=== PATIENT | female | born 1950 | race African-American/Black ===

== ENCOUNTER 2020-06-29 11:28 | Inpatient (IN) | payer MEDICARE ==
[~2020-06-29] VITALS: Ht 167.6 cm; Wt 63.7 kg
[~2020-06-29 11:28] MED LIST: CARTIA XT300 MG PO; FOLIC ACID 11 MG/TA1 PO; LEXAPRO 10MG10 MG PO; MIRALAX PA17 GM/Dose PO; NEURONTIN300 MG/CAP PO; PROTONIX 40MG T40 MG PO; TYLENOL 325MG325 MG PO; ULTRAM 50MG TAB50 MG PO; VITAMIND3 5000 PO
[2020-06-29 16:10] VITALS: BP 154/92; PULSE 87; TEMP 97.9
--- NOTE | 2020-06-29 18:35 | NUR ---
PT TRANSFERRED VIA BED BY [facility] 9 12 TUTOR TO ROOM 338 AROUND 1220. PT ORIENTED TO THE UNIT AND BEGAN THERAPY WITH OT, PT, ST. PT RECIEVED ONE DOSE OF SCHEDULED TRAMADOL. MED REC, IPR CARE PLAN IN PLACE, ADMISSION INTAKE, AND PHYSICAL ASSESSMENT COMPLETED. PT NEEDED MODERATE AMOUNT OF ASSISTANCE WITH MEALS THIS EVENING. DID NOT HAVE UTENSIL TOOLS AT THAT TIME, WILL TRY AGAIN IN THE AM.
--- NOTE | 2020-06-29 19:10 | NUR ---
Received report from Orquidea. Seen patient in bed, asleep. Awaken patient as dietary wants to know her preferred meal for tomorrow. She in on room air. She has purewick with clear, yellow urine. Patient states she doesn't want to be awaken later for her Tramadol.
--- NOTE | 2020-06-29 21:05 | NUR ---
Repositioned patient in bed. Checked on purewick, still in place. Maintained pillow on the right side.
[2020-06-30 05:29] VITALS: BP 136/71; PULSE 72; TEMP 97.4
--- NOTE | 2020-06-30 05:39 | NUR ---
Changed patient's purewick and diaper. Repositioned patient in bed.
--- NOTE | 2020-06-30 06:53 | NUR ---
PT SLEEPING IN BED AT BEDSIDE SHIFT REPORT. AIR MATTRESS IN PLACE SOFT TOUCH CALL LIGHT WITHIN REACH, BED IN LOW.
[2020-06-30] MEDS ORDERED: LOVENOX 4040 MG/0.4 SQ (06:58)
--- NOTE | 2020-06-30 15:44 | NUR ---
PRN SUPPOSITORY GIVEN. PT UNABLE TO GIVE DATE OF LAST BM, OVER A WEEK AGO. PT TOLERATED WELL. WAS HELD IN FOR 30-40 MINUTES AND THEN PT PLACED ON BEDPAN. AWAITING RESULTS.
--- NOTE | 2020-06-30 16:44 | NUR ---
SMALL IMPACTION WAS DIGITALLY REMOVED BY THIS NURSE. PT THEN HAD MINIMAL OUTPUT OF BM THAT PRESENTED LIKE FAT. WHITE WITH MINIMAL FORM AND SOFT. PT ALSO VOIDED WHILE ON BEDPAN. PT WAS CLEANED UP, NEW PAD PLACED UNDERNEATH AND PERIWICK REPLACED.
[2020-06-30 17:07] VITALS: BP 107/43; PULSE 77; TEMP 97.5
--- NOTE | 2020-06-30 17:45 | NUR ---
DISCUSSED WITH PT AND WITH RURAL SOCIOLOGIST NEW IDEAS FOR FEEDING. PT VOMITTED TWICE TODAY AFTER EATING. PT IS TRYING TO CONSUME MORE THEN STOMACH IS USED TO BECAUSE OF OUR SCHEDULE FOR MEALS. PT NEEDS VERY SMALL MEALS SPACED OUT. AND NO DRINKS WITHIN 30 MINUTES AFTER EATING. PT NEEDS TO SIT UP FOR 45-HOUR AFTER EATING WELL.
--- NOTE | 2020-06-30 21:30 | NUR ---
PATIENT RESTING IN BED. STATES SHE STILL HAS THE "PINS AND NEEDLES" SENSATION IN HER HANDS AND FEET. NEONATAL PEDIATRIC NURSE ASSISTED HER WITH EATING HER PEARS AND ENSURE. PATIENT REPOSITIONED. SOFT TOUCH CALL LIGHT IN REACH.
--- NOTE | 2020-07-01 00:30 | NUR ---
PATIENT COMPLAINING OF HEART BURN. TUMS ADMINISTERED. PATIENT REPOSITIONED. PUREWICK STILL IN PLACE.
[2020-07-01 04:57] VITALS: BP 110/53; PULSE 78; TEMP 98.4
--- NOTE | 2020-07-01 05:48 | NUR ---
PATIENT SLEPT WELL THROUGHOUT THE NIGHT. REPOSITIONED PATIENT FREQUENTLY. PATIENT DENIES PAIN THIS MORNING. PATIENT IS CLEAN AND DRY WITH PUREWICK STILL IN PLACE. SOFT TOUCH CALL LIGHT IS IN PLACE.
[2020-07-01 09:00] VITALS: BP 114/64; BP 120/64; PULSE 100; PULSE 98
--- NOTE | 2020-07-01 15:37 | NUR ---
The patient is new to [facility]. Supervisor Liquefaction met with the patient complete intake. The patient lives in [place] with her son-in-law, and daughter, Cherelle. The patient has a wheelchair, walker, and bedside commode. The patient's PCP is Dr. Caraballo and patient receives medications from [facility] in . The patient has advanced directives in the EMR. SW presented the Team Conference Notes. The patient had no questions at this time.
[2020-07-01 16:10] VITALS: BP 117/59; PULSE 84; TEMP 97.5
--- NOTE | 2020-07-01 19:39 | NUR ---
RECEIVED CHANGE OF SHIFT REPORT FROM DAY SHIFT NURSE.
--- NOTE | 2020-07-01 19:54 | NUR ---
Patient attended all her therapies today. She was given a swallow study this morning, but patient and ST have decided to continue to keep her on pureed foods at this time. Patient is able to feed her self a little bit, but has much difficulty and with assistance is able to eat all her food and drink more. Patient was incontinent of urine this morning following her PT session. This nurse changed out her brief and the stage II ulcers to her bottom staff placed zinc. This nurse was not able to feed patient all her breakfast, but was able to get her to eat most of her lunch and supper this evening. She uses the purwick when in bed to prevent any worsening of her ulcer to her coccyx. This nurse reported off to night nurse.
--- NOTE | 2020-07-01 20:00 | NUR ---
CONTINUES WITH GENERALIZED WEAKNESS, UNABLE TO AMBULATE AT THIS TIME DUE TO SEVERE GENERALIZED WEAKNESS, PATIENT ATTEMPTS TO DRINK PER SELF WHEN ABLE AND FEED SELF DURING MEAL TIMES IF ABLE BUT MOSTLY REQUIRES ASSIST WITH DRINKING AND BEING FED AT MEAL TIMES. HAND BRAZE OPERATOR ARE VERY WEAK BUT EQUAL. PURE WICK IN PLACE. PICC LINE IN PLACE AND FLUSHES WELL.
[2020-07-02 05:07] VITALS: BP 95/47; PULSE 85; TEMP 97.8
--- NOTE | 2020-07-02 09:38 | NUR ---
Follow-up visit; Mervat always thanks Lockstitch Pocket Setter for visiting and offering prayer and asks Lockstitch Pocket Setter to come back tomorrow. Patient seems to be doing well and does love prayer.
--- NOTE | 2020-07-02 14:07 | NUR ---
Admission QIM scores were reviewed by the team. Code of 1 chosen for toilet hygiene was determined by team discussion to be the most usual performance for this patient during the assessment period. Code of 2 chosen for rolling left to right was determined by team discussion to be the most usual performance for this patient during the assessment period. Code of 1 chosen for sit to lying was determined by team discussion to be the most usual performance for this patient during the assessment period. Code of 1 chosen for lying to sitting on side of bed was determined by team discussion to be the most usual performance for this patient during the assessment period.--Leila Fernandez,
[2020-07-02 16:18] VITALS: BP 99/32; PULSE 90; TEMP 98.7
--- NOTE | 2020-07-02 19:49 | NUR ---
RECEIVED CHANGE OF SHIFT REPORT FROM DAY SHIFT NURSE.
--- NOTE | 2020-07-02 21:24 | NUR ---
Patient attended all her therapies today. She was able to feed herself when staff placed her drinks in a coffee paper cup with lid and straw. This made it easier for her to be able to hold the drink without spilling it. Patient continues to use the purwick to help with ulcer healing on her bottom. Patient was placed on a mechanical soft diet instead of the pureed diet per suggestion of Elise. Patient has a lactose intolerance and this was causing her to not be able to eat vegetables due to the pureed foods have a lactose ingredient. Elise stated that the kitchen staff could still help with getting patient pureed foods with this type of diet. They could blend the foods themselves. Patient had passed the swallow study, but still is needing to have the pureed type foods to be able to swallow easier and feed herself easier. Patient had tilt table blood pressures completed at different degrees. See EMR for results of this today. Patient seems to tolerate the crushed pills easier then the whole pills and likes to take them with chocolate pudding. Patient currently resting in bed, call light in reach and alarm set. She was repositioned Q 2 Hours this shift. Reported off to night nurse.
--- NOTE | 2020-07-02 21:37 | NUR ---
Orthostatic Blood Pressures using tilt table today: Zero degrees: BP 83/62; P 110 20 degrees: BP 98/33; P 105 40 degrees: BP 109/51 P 117 60 degrees: BP 49/20 P 118 0 degrees: BP 97/51 P 101 5 min later BP 123/63 P 96
[2020-07-03 05:22] VITALS: BP 94/43; PULSE 82; TEMP 97.3
--- NOTE | 2020-07-03 07:37 | NUR ---
CHANGE OF SHIFT REPORT GIVEN TO DAY SHIFT NURSESRIRAM.
--- NOTE | 2020-07-03 10:08 | NUR ---
PT RESTING IN BED AT BEDSIDE SHIFT REPORT. PT REPORTS 4/10 PAIN WHICH IS BASELINE FOR HER THIS AM. SCHEDULED TRAMADOL GIVEN.
[2020-07-03 18:00] VITALS: BP 88/46; PULSE 99; TEMP 97.9
--- NOTE | 2020-07-03 19:25 | NUR ---
PT VOMITTED AFTER EATING SUPPER. PROTONIX WAS UNABLE TO BE GIVEN PRIOR TO EATING AND PT REFUSED IT AFTER EATING. HYPOTENSIVE, OUTPUT IS MINIMAL SO INPUT IS LIKELY NOT ENOUGH.
[2020-07-03 19:39] VITALS: BP 114/95
[2020-07-04 05:02] VITALS: BP 96/48; PULSE 53; TEMP 98
--- NOTE | 2020-07-04 06:30 | NUR ---
Patient slept well throughout the night with no complaints of pain. States she has the "usual pins and needles in her hands and feet". Repositioned patient frequently throughout the night. Will report off to day shift.
[2020-07-04 10:15] VITALS: BP 106/55; PULSE 96
[2020-07-04 17:39] VITALS: BP 133/74; PULSE 88; TEMP 98.5
--- NOTE | 2020-07-04 18:23 | NUR ---
PATIENT HAD AN UNEVENTFUL SHIFT. PATIENT REPOSITIONED THROUGHOUT THE DAY. MEDICATIONS ADMINISTERED DIRECTED. PATIENT CHECKED AND CHANGED. PURWICK IN PLACE AT THIS TIME. PATIENT SITTING UP IN BED WATCHING TV AT THIS TIME. WILL REPORT OFF TO ONCOMING NURSE.
--- NOTE | 2020-07-04 20:00 | NUR ---
PT RESTING IN BED WITH HOB ELEVATED. WATCHING TV. PLEASANT AND COOPERATIVE. PT C/O CONSTIPATION. PLACED SUPPOSITORY. GAVE SENOKOT AT HS. HAD A XL HARS/SOFT BROWN BM. PLACE NEW PERIWICK- URINE WAS LEAKING ON DIAPER. K[place]LESH AREA CLEANED. ENC PT TO DRINK MORE- URINE HAZY YELLOW WITH SOME SEDIMENT IN CANNISTER. CLEANED COCCYX WOUND AND PLACED NEW SACRAL DRSG. SEE ASSESSMENT. ENC TO REPOSITION FREQ IN BED. DIFFERENTIAL TESTER WILL ASSIST.
[2020-07-05 03:37] VITALS: BP 125/59; PULSE 93; TEMP 98.3
--- NOTE | 2020-07-05 07:48 | NUR ---
Patient was a two person assist to scoot up in bed. Patient was a set up for eating and required some assistance with cutting up eggs in smaller bites so she is able to feed herself. Patient uses an attached device to handle of spoon to help her hold onto spoon better. Patient watching TV at this time. VSS. Denies any questions.
--- NOTE | 2020-07-05 11:01 | NUR ---
Worked with patient on range of motion of hands/arms/legs. Patient did her ST therapies this morning as per her paper instructions with this nurse observing. Patient also was able to do morning stretches and is using her squeeze device to strengthen her hands. Patient currently watching TV, call light in reach and bed alarm set. Will continue to monitor.
--- NOTE | 2020-07-05 14:52 | NUR ---
Patient incontinent of urine, was a one assist to change brief. Has periwick in place at this time. Urine is light js and hazy. Will continue to monitor.
[2020-07-05 16:22] VITALS: BP 116/52; PULSE 100; TEMP 97.7
[2020-07-05 17:52] LABS: COLLECTION METHOD CATHETER
[2020-07-05 17:59] LABS: MUCOUS Present /lpf; PH 8 (5-8); SQUAMOUS EPITHELIAL 0-2 /hpf; URINE APPEARANCE Clear; URINE BACTERIA None Seen /hpf; URINE BILIRUBIN Negative (NEGATIVE); URINE BLOOD Negative (NEGATIVE); URINE COLOR Yellow; URINE GLUCOSE Negative (NEGATIVE); URINE KETONE Negative (NEGATIVE); URINE LEUKOCYTE ESTERASE Negative (NEGATIVE); URINE NITRATE Negative (NEGATIVE); URINE PROTEIN(semi-quant) 1+ (NEGATIVE); URINE RBC 0-2 /hpf; URINE UROBILINOGEN >=4.0 mg/dL (NEGATIVE)
--- NOTE | 2020-07-05 19:29 | NUR ---
Patient was straight cathed to get a clean catch urine for a UA/UC. Using 16 Frendch Catheter.Patient toleratedwell.
--- NOTE | 2020-07-05 20:30 | NUR ---
PT RESTING IN BED. TURNED FREQUENT TO OFF SET WEIGHT ON COCYCCX WOUND. PT HAD LOOSE BM- APPLIED CLEAN SACRAL DRSG. HANGED LINENS. APPLIED NEW PERIWICK IN PLACE. PT VERY WEAK FRESH FOOD MANAGER ESPECIALLY RT HAND- RT KNEE SWOLLEN WITH ARTHRITIS. LT ALITTLE LESS SWOLLEN. TAKE HS MEDICATIONS CRUSHED IN PUDDING. NO NEEDS AT THIS TIME.
--- NOTE | 2020-07-06 04:00 | NUR ---
POOR UO PER PERIWICK. NO LEAKAGE NOTED. BLADDER SOFT. ENC PT TO DRINK. ASSISTED WITH HOLDING HER CUP. PT DRANK LG AMT. WILL CONTINUE TO MONITOR.
[2020-07-06 04:03] VITALS: BP 113/59; PULSE 90; TEMP 98.2
--- NOTE | 2020-07-06 09:48 | NUR ---
PT SLEEPING IN BED AT BEDSIDE SHIFT REPORT, BED ALARM ON, CALL LIGHT WITHIN REACH. PT REPORTS BASELINE PAIN THIS AM. AND RECEIEVED SCHEDULED TRAMADOL. PT REPORTS NOT BEING HUNGRY AND HAVING AN UPSET STOMACH.
--- NOTE | 2020-07-06 15:01 | NUR ---
Follow-up visit; Mervat and had a nice visit and prayer. Executive Compensation Analyst also offered encouragement and blessings.
[2020-07-06 16:28] VITALS: BP 115/51; PULSE 90; TEMP 98.3
--- NOTE | 2020-07-06 19:57 | NUR ---
RECEIVED CHANGE OF SHIFT REPORT FROM DAY SHIFT NURSE. PATIENT C/O HEART BURN AFTER EATING MOST OF SUPPER, SEE eMAR FOR TUMS GIVEN. PURE WICK IN PLACE AND SUCTION ON.
--- NOTE | 2020-07-06 20:20 | NUR ---
PT REPORTED BASELINE PAIN TODAY OF 4/10, RECEIEVED SCHEDULED TRAMADOL. PT UTILIZING PUREWICK AND Q2 TURNS TO PREVENT MORE BREAKDOWN TO SACRAL PRESSURE INJURY. DRSG CHANGED TO S2 INJURIES TO SACRUM, SILVER AG AND NEW ALLEVYN DRSG PLACED. PT SAT ON BEDPAN AND WAS UNABLE TO HAVE BM ON HER OWN. THIS NURSE DIGITALLY REMOVED A MEDIUM AMOUNT OF PUTTY/HARD STOOL. PT HAS VERY LITTLE TON AND UNABLE TO PUSH BOWEL OUT ON HER OWN. PT CLEANSED AND PUREWICK REPLACED AND PT REPOSITIONED.
[2020-07-07 05:11] VITALS: BP 77/36; PULSE 97; TEMP 97.8
[2020-07-07 07:32] VITALS: BP 112/58
--- NOTE | 2020-07-07 07:37 | NUR ---
CHANGE OF SHIFT REPORT GIVEN TO DAY SHIFT NURSEKEVIN.
--- NOTE | 2020-07-07 10:49 | NUR ---
Community Service Manager met with the patient to follow up. The patient does not have any questions or concerns at this time.
--- NOTE | 2020-07-07 12:46 | NUR ---
Follow-up visit; Patient states she is doing better every day and thanked Fashion Editor for thinking of her.
--- NOTE | 2020-07-07 15:36 | NUR ---
The patient's daughter visited this day.
--- NOTE | 2020-07-07 16:31 | NUR ---
Patient resting in bed, call light in reach, bed alarm set. Patient was repositioned and has this done Q 2 Hours due to stage II ulcer to her coccyx area. Patient has a mepilex in place at this time. Patient has a periwick in place to help with prevention of moisture. Patient's daughter stopped by to visit patient this afternoon following therapies. Patient attended all therapies today. She refused her breakfast due to being tired, but she did drink all her ensure drink for both following breakfast and lunch. Patient denies pain at this time. Will continue to monitor.
[2020-07-07 17:26] VITALS: BP 111/59; PULSE 106; TEMP 98.9
--- NOTE | 2020-07-07 19:30 | NUR ---
RECEIVED CHANGE OF SHIFT REPORT FROM DAY SHIFT NURSE.
--- NOTE | 2020-07-07 20:00 | NUR ---
CONTINUES WITH GENERALIZED WEAKNESS WITH EQUAL KEIRY COATER HAND. PURE WICK IN PLACE. BED ALARM ON. DENIES CHEST PAIN/SHORTNESS OF BREATH. CONTINUES WITH NUMBNESS/TINGLING TO EXTREMITIES " ALWAYS FROM BEFORE" PER PATIENT STATEMENT.
--- NOTE | 2020-07-07 20:12 | NUR ---
Patient resting in bed, call light in reach and bed alarm set. Reported off to night nurse.
[2020-07-08 05:06] VITALS: BP 116/55; PULSE 97; TEMP 97.9
--- NOTE | 2020-07-08 14:50 | NUR ---
Patient resting in bed at this time. This nurse assisted patient with digital anal stimulation due to a hard BM this morning. Patient is not able to sit up to have a BM and does not have enough strength to push. Will work with patient this afternoon again. Patient wanted to wait until after the rest of her therapies to continue to work on completing her BM.
--- NOTE | 2020-07-08 15:52 | NUR ---
Outreach Analyst met with the patient to review the Team Conference Note. The team is recommending a tentative discharge on 07/17 to SNF. The patient was agreeable to sending referrals to [facility], and [facility]. Referrals to be sent. The patient had no questions at this time.
--- NOTE | 2020-07-08 16:30 | NUR ---
Ornamental Brick Installer contacted the patient's daughter, Cherelle to set up family meeting for Monday, 07/13 at 1300. She was in agreeable to the meeting time. SW collaborted the above information with BHANU Dee Director.
[2020-07-08 17:00] VITALS: BP 124/58; PULSE 101; TEMP 98
--- NOTE | 2020-07-08 21:00 | NUR ---
PT RESTIN IN BED. POOR MUSCLE TONE AND STRENGTH. VERY POOR BUYER INTERNSHIP. REPOSTIONED OFF COCCYX - SACRAL DRSG IN PLACE. TAKE ULTRAM SCHEDULED FOR PAIN. WEARS DIAPERS AND PURIWICK FOR INCONTINENCE- LEAKS FREQUENTLY. CALL LIGHT PAD IN REACH. BED ALARM SET.
--- NOTE | 2020-07-08 21:30 | NUR ---
PT C/O CONSTIPATED. HAD HARD STOOL EARLIER TODAY BUT STILL FEEL UNABLE TO EMPTY BOWELS. GAVE DULCOLAX SUPPOSITORY. CHANGED COCCYX MEPILEX WET- URINE. REPLACED PURIWICK.
--- NOTE | 2020-07-08 23:15 | NUR ---
ABLE TO EXPELLED SOME HARD STOOL. REQUIRED DIGITALLY REMOVE LG AMT HAARD BROWN STOOL. PT RELIEVED.
--- NOTE | 2020-07-09 02:28 | NUR ---
PT WATCHING TV WHILE RESTING IN BED. PURWICK IN PLACE, DRAINING CLEAR, YELLOW URINE. PICC WITH DUAL LUMENS TO UPPER RIGHT ARM. SITE WITHOUT S/S INFECTION. DENIES ANY NEEDS AT PRESENT.
[2020-07-09 05:20] VITALS: BP 114/61; PULSE 94; TEMP 98.4
--- NOTE | 2020-07-09 09:44 | NUR ---
Follow-up visit; Patient thanked Abrasive Grinder for thinking of her and praying with her this morning.
--- NOTE | 2020-07-09 09:56 | NUR ---
PT SLEEPING IN BED AT BEDSIDE SHIFT REPORT. PT WAS INCONTINENT, PUREWICK IN PLACE BUT NOT SUCTIONING. PT HAD BLISTER ON RT INNER THIGH WHICH HAS OPENED AND NOW APPEARS A SKIN TEAR.
--- NOTE | 2020-07-09 12:54 | NUR ---
Experimental Welder faxed SN[facility] ref[facility], and [facility].
[2020-07-09 13:10] LABS: BASO % 0.2 % (0.0-2.0); EOS # 0.1 (0.0-0.7); GRAN # 2.8 (1.4-6.5); GRAN % 48.5 % (42.2-75.2); HEMOGLOBIN 11.2 g/dl (12.5-16.0); LYMPH # 1.9 (1.2-3.4); LYMPH % 32.6 % (20.0-51.0); MEAN CELL VOLUME 85 fl (80.0-100.0); MEAN CORPUSCULAR HEMOGLOBIN 28 pg (27.0-31.0); MEAN CORPUSCULAR HGB CONC 32 g/dl (33.0-37.0); MEAN PLATELET VOLUME 12.1 fl (7.4-10.4); MONO % 17.5 % (1.7-9.3); PLATELET COUNT 169 K/mm3 (130-400); RED BLOOD COUNT 4.06 M/mm3 (4.10-5.30); REDCELL DISTRIBUTION WIDTH-CV 21.3 % (11.5-14.5)
[2020-07-09 13:11] LABS: HEMATOCRIT 34.6 % (37.0-47.0)
[2020-07-09 13:20] LABS: CREATININE, serum 0.43 (0.52-1.25); MAGNESIUM 1.8 mg/dL (1.6-2.3); POTASSIUM 3.5 mmol/L (3.4-5.0)
[2020-07-09 16:25] VITALS: BP 118/38; PULSE 101; TEMP 98.1
--- NOTE | 2020-07-09 19:49 | NUR ---
SILVER AG AND MEPILEX APPLIED TO INNER THIGH S2 AND SILVER AG AND ALLEVYN TO S2'S TO COCCYX. PT UTILIZING PUREWICK, HAD TROUBLE MAKING SURE IT IS WORKING PROPERLY TODAY, WAS INC SEVERAL TIMES BUT CAUGHT SOON DUE TO TURNING SCHEDULE. REPORTED TO NIGHT NURSE NOT TO PULL BRIEF UP B/C THIS IS CAUSING BLISTERS IN HER GROIN/THIGH. PT REQUESTS TRAMADOL BE CHANGED TO ONCE A DAY HS B/C CAUSING CONSTIPATION AND SHE STATES SHE DOES NOT HAVE MUCH PAIN, THIS WAS COMMUNICATED TO NIGHT NURSE.
--- NOTE | 2020-07-09 21:07 | NUR ---
PT RESTING IN BED. PURWICK IN PLACE WITH APPROX 150ML URINE IN SUCTION CANISTER. BLUE PAD ON PT DRY. REPOSITIONED TO RIGHT SIDE. CALL LIGHT IN REACH.
[2020-07-10 05:04] VITALS: BP 112/61; PULSE 90; TEMP 98
--- NOTE | 2020-07-10 05:21 | NUR ---
PT HAS HAD A GOOD NIGHT. STAYED DRY WITH THE PURWICK IN PLACE. A&O X4. DENIES PAIN, SOA. TAKES PROTONIX. VS MONITORED. REPOSITIONED TO LEFT SIDE. BED ALARM ON. CALL LIGHT WITHIN REACH.
--- NOTE | 2020-07-10 09:23 | NUR ---
Patient working with therapy. They are assisting with shower. Patient tried to use bedpan this am without success. She was provided with pressure ulcer cares. Patient skin very fragile. skin tears noted on inner thighs, patient reports it was from sasha zamudio loosly fastened. Patient has been using purwick, new one applied. Patient tolerated breakfast without nausea. Patient reports pain, but refused ultram scheduled, reporting she only needs it HS. Will monitor.
--- NOTE | 2020-07-10 10:14 | NUR ---
Patient positioned in bed to her left side after shower. Heel protectors placed. We discussed her poor skin integrity. Another new allyven foam placed to her coocyx post shower & to her inner thighs. Patietn wanting to rest until her next round of therapy.
--- NOTE | 2020-07-10 10:32 | NUR ---
Follow-up with Prayer card of 'Hope'. Patient doing PT.
--- NOTE | 2020-07-10 13:51 | NUR ---
Patient has been sleeping soundly. Speech went in to start her therapy session & patient was awoken from a deep sleepy slightly disoriented. Vitals stable on room air. Once I talked to patient she was oriented & felt fine. Just needed a minute to wake up
--- NOTE | 2020-07-10 14:32 | NUR ---
[facility] staff and [facility] staff inquired about the patient's IVIG treatment and the details. The patient may be needing the treatment for approximatley a year every three weeks. ELISA contacted Dr. Bradley's office to inquire about delaying the tx until after post acute rehab in order to find appropriate placement post IPR. Then continue the IVIG treatment after post acute rehab. Dr. Bradley reports it is medically unethical to stop tx at this time. ELISA collaborated the above information with [facility] Director.
[2020-07-10 16:00] VITALS: BP 123/65; PULSE 78; TEMP 98.5
--- NOTE | 2020-07-10 16:20 | NUR ---
Patient remains sleepy. Vss. She answers questions questions correctly. She knows month, year, where she is, who she is. She is repostioned in bed. Purewick in place.
--- NOTE | 2020-07-10 17:48 | NUR ---
Patient repostioned in bed for dinner, sat up for dinner. Patient assisted with dinner & we discussed importance of nutrition. She ate a few bites. She had a few sips of water. Continues to be oriented. Resting frequently.
--- NOTE | 2020-07-10 19:04 | NUR ---
Patient repositioned to left side. Pillows used. Bedside report to Mervat
--- NOTE | 2020-07-10 20:54 | NUR ---
PT RESTING IN BED WITH HOB ELEVATED TO 15 DEGREE ANGLE, DENIES PAIN OR DISCOMFORT. NO NEEDS AT THIS TIME, CALL LIGHT WITHIN REACH.
--- NOTE | 2020-07-11 00:42 | NUR ---
WHILE CHANGING AN INCONTINENT EPISODE OF BM. THIS NURSE NOTICED THAT THE PT HAD AN OPEN AREA ON HER RIGHT GUTEAL FOLD NEAR HER THIGH. PLACED A DRSG OVER THE AREA.
[2020-07-11 05:59] VITALS: BP 126/55; PULSE 106; TEMP 97.4
--- NOTE | 2020-07-11 06:34 | NUR ---
PT HAD NOT HAD ANY URINE OUTPUT ALL SHIFT. BLADDER SCANNED PT AND PT ONLY HAD 78ML OF URINE SHOWING IN HER BLADDER. DID ASSIST PT WITH DRINKING WATER. PT HAD A NEW ULCER ON HER GLUTEAL FOLD ON RIGHT SIDE NEAR TIGHT. NO OTHER CONCERNS NOTED. CALL LIGHT WITHIN REACH AND BED ALARM ON.
--- NOTE | 2020-07-11 07:15 | NUR ---
PT SLEEPING IN BED AT BEDSIDE SHIFT REPORT. BED IN LOW, CALL LIGHT WITHIN REACH, PUREWICK IN PLACE.
[2020-07-11 16:23] VITALS: BP 123/61; PULSE 102; TEMP 99
--- NOTE | 2020-07-11 18:14 | NUR ---
PT REPORTED BASELINE PAIN TODAY OF 4/10 MANAGED WELL WITH BID TRAMADOL. PT ON Q2 TURNING SCHEDULED MAINTAINED STRICTLY TODAY WELL CHECKS THAT PUREWICK IS IN PLACE AND PT IS DRY. FLUIDS PUSHED TODAY, PT HAD LITTLE TO NO OUTPUT LAST SHIFT AND HAS 700 OUTPUT AT SHIFT REPORT TODAY.
--- NOTE | 2020-07-11 19:31 | NUR ---
PT RESTING IN BED. DAY SHIFT NURSE GIVE REPORT. CHANGED IV ANTIBIOTIC BAG. DENIES ANY NEEDS AT PRESENT. CALL LIGHT IN REACH.
--- NOTE | 2020-07-11 20:38 | NUR ---
SHIFT ASSESSMENT COMPLETE. TAKES EVENING MEDS BUT WOULD LIKE TYLENOL AND HER MELATONIN AROUND 9:30PM. PERWICK IN PLACE AND DRAINING PALE YELLOW URINE. BED ALARM ON. WATCHING TV. PICC IN UPPER R ARM WRAPPED WITH CHAUNCEY. CALL LIGHT IN REACH. DENIES ANY NEEDS AT PRESENT.
[2020-07-12 05:59] VITALS: BP 112/53; PULSE 92; TEMP 98.1
--- NOTE | 2020-07-12 07:08 | NUR ---
PT REPOSITIONED EVERY [address] TRAY PLACED ACROSS BED FOR PT TO BE ABLE TO REACH CUP OF WATER. TYLENOL 650MG GIVEN AT HS. REPORT GIVEN TO DAY SHIFT NURSE.
--- NOTE | 2020-07-12 09:27 | NUR ---
0900- Pt. awake in bed and adrienne-wick changed with min dark orange fluid;adrienne cares given and coccyx dressing CDI and dressing posterior lower buttuck/thigh dressing CDI; max x1 to reposition and pull up in bed.
[2020-07-12 16:16] VITALS: BP 112/45; PULSE 103; TEMP 97.4
--- NOTE | 2020-07-12 18:55 | NUR ---
RECEIVED CHANGE OF SHIFT REPORT FROM DAY SHIFT NURSE. BED ALARM ON.
--- NOTE | 2020-07-12 20:00 | NUR ---
GENERALIZED WEAKNESS CONTINUES WITH SOME IMPROVEMENT, OBSERVED MOVEMENT OF BLE AT TIMES THAT PATIENT IS UNABLE TO CONTROL MOVEMENT AT THIS TIME. REPORTS STILL HAS NUMBNESS/TINGLING TO EXTREMITIES. DENIES CHEST PAIN/SHORTNESS OF BREATHE AT THIS TIME. PURE WICK IN PLACE/DRAINING WITH NO PROBLEMS. BED ALARM ON. PATIENT DENIES DISCOMFORT AT THIS TIME.
[2020-07-13 05:55] VITALS: BP 118/56; PULSE 97; TEMP 98.1
--- NOTE | 2020-07-13 07:14 | NUR ---
CHANGE OF SHIFT REPORT GIVEN TO DAY SHIFT NURSECARLY. BED ALARM ON.
--- NOTE | 2020-07-13 09:26 | NUR ---
Follow-up visit; Mervat seems to be doing about the same. Her spirits seem to be hopeful and she requested prayer as always. District Manager Major Accounts Sales prayed with her and offered God's blessings and a good day.
--- NOTE | 2020-07-13 13:42 | NUR ---
SW attended the patient/family conference. The patient's daughter, Cherelle, was present. Also present was IPR Director, PT, OT, and ST. IPR Director started by explaining the purpose of the meeting. PT/OT/ST then discussed the patient's progress so far. IPR Director then discussed how plan is for tentative d/c on Monday, 07/17, to a SNF, once placement is found. IPR Director informed them of the issue of the IVIG. IPR Director is collaborating with the hospitalist and neurologist on plans for the IVIG. The team answered all questions.
[2020-07-13 17:14] VITALS: BP 101/50; PULSE 108; TEMP 97.4
--- NOTE | 2020-07-13 18:30 | NUR ---
Patient has been doing well today. She ate most her meals on her own. She just needed help with setup. She ate slowly but did it mostly on her own. She sat up in the chair for a little while today. She was alert most the day, napped for about an hour after lunch. No other changes at this time. Call light within reach.
--- NOTE | 2020-07-13 19:00 | NUR ---
RECEIVED CHANGE OF SHIFT REPORT FROM DAY SHIFT NURSE. BED ALARM ON. PICC LINE INTACT. DENIES ANY NEEDS AT THIS TIME.
--- NOTE | 2020-07-13 20:00 | NUR ---
CONTINUES GENERALIZED WEAKNESS, RIGHT HAND BAGGAGE PORTER SLIGHTLY WEAKER THAN LEFT, OBSERVED AT TIMES SPASTIC MOVEMENT OF BLE WITH MOVE OF BLE BY STAFF. PURE WICK IN PLACE, DRAINING WITH NO PROBLEMS. PATIENT DENIES PAIN AT THIS TIME.
[2020-07-14 04:20] VITALS: BP 109/53; PULSE 71; TEMP 97
--- NOTE | 2020-07-14 07:41 | NUR ---
CHANGE OF SHIFT REPORT GIVEN TO DAY SHIFT NURSE, SRIRAM HAMMONDS.
--- NOTE | 2020-07-14 09:49 | NUR ---
PT SLEEPING IN BED AT BEDSIDE SHIFT REPORT. CHECKED THAT PUREWICK WAS IN PLACE AND WORKING, PT DRY AND WAS TURNED AT SHIFT CHANGE.
--- NOTE | 2020-07-14 10:38 | NUR ---
Follow-up visit; Patient thanked Rn Hedis for praying that she continue to give God her concerns about going to the right nursing facility that will be able to pay for and provide the medication that she needs. Patient continues to have marycruz and courage. Rn Hedis will keep her in Rn Hedis's prayers.
--- NOTE | 2020-07-14 14:01 | NUR ---
ELISA faxed updates to [facility], [facility], and [facility]. ELISA notified them of Dr. Bradley's plan to continue the IVIG every three weeks for a year.
--- NOTE | 2020-07-14 14:48 | NUR ---
Rox, at [facility], requests the J-Code and the cost of the IVIG. SW collaborated with pharmacy to obtain this information. The J-code is J1569. The estimated cost for the med would be $3,500 every three weeks. ELISA updated Rox on this information. Ceferino, at [facility], also requested the J-Code. SW provided Ceferino with the code.
[2020-07-14 16:52] VITALS: BP 114/62; PULSE 84; TEMP 98.4
--- NOTE | 2020-07-14 19:05 | NUR ---
RECEIVED CHANGE OF SHIFT REPORT FROM DAY SHIFT NURSE.
--- NOTE | 2020-07-14 20:00 | NUR ---
CONTINUES WITH GENERALIZED WEAKNESS AND RIGHT HAND LICENSING AND REGISTRATION DIRECTOR SLIGHTLY WEAKER THAN LEFT. SPEECH WITH NO SLURRING, ABLE TO DRINK THIN LIQUIDS WITH NO PROBLEMS. STILL REQUIRES TO HAVE PILLS CRUSHED&MIXED WITH PUDDING, WHEN APPROPRIATE. DENIES CHEST PAIN/SHORTNESS OF BREATH. REPORTS STILL HAS TINGLING TO EXTREMITIES SINCE ADMIT TO HOSPITAL. DENIES CHEST PAIN OR SHORTNESS OF BREATH. BED ALARM ON WHEN IN BED.
[2020-07-15 05:42] VITALS: BP 115/50; PULSE 89; TEMP 98.2
--- NOTE | 2020-07-15 07:35 | NUR ---
CHANGE OF SHIFT REPORT GIVEN TO DAY SHIFT NURSE, KEVIN HAMMONDS.
--- NOTE | 2020-07-15 10:13 | NUR ---
Patient working with PT at this time. Patient dry and has periwick in place to control moisture. Patient denies questions at this time.
--- NOTE | 2020-07-15 10:28 | NUR ---
Follow-up visit; Patient thanked Customer Success Manager for offering prayer and encouragement again this morning and is looking forward to being transferred to an Assisted Care Facility.
--- NOTE | 2020-07-15 15:24 | NUR ---
ELISA met with the patient to present and review the IPR Team Conference Note. SW informed the patient how plan is still for SNF with a tentative d/c on Monday, 07/17, and to receive her next dose of IVIG tomorrow or Monday. The patient verbalized understanding and was agreeable to this. ELISA notified [facility], and Bree of the above plan. Awaiting acceptance and denials from facilities.
[2020-07-15 16:50] VITALS: BP 116/60; PULSE 100; TEMP 98.3
--- NOTE | 2020-07-15 19:45 | NUR ---
RECEIVED CHANGE OF SHIFT REPORT FROM DAY SHIFT NURSE. BED ALARM ON.
--- NOTE | 2020-07-15 19:51 | NUR ---
Patient currently resting in bed, call light in reach and bed alarm set. Patient denied pain this afternoon. She attended all therapies today. She will be receiving her IVIG tomorrow per Dr. Quan's request. Patient in a pleasent mood this shift. Patient had a large soft formed BM that was continent via the bed fonseca. Will continue to monitor. Reported off to night nurse.
[2020-07-16] VITALS (9 sets, daily range): BP systolic 94–131; BP diastolic 47–65; PULSE 90–100; TEMP 97.6–98.3
--- NOTE | 2020-07-16 07:10 | NUR ---
CHANGE OF SHIFT REPORT GIVEN TO DAY SHIFT NURSE, KEVIN HAMMONDS.
--- NOTE | 2020-07-16 09:20 | NUR ---
Rox, at [facility], reports that they are able to accept the patient for a skilled stay. ELISA contacted and updated the patient's daughter, Cherelle. She is agreeable for the patient to go to [facility]. ELISA to inform the patient. ELISA asked the PA for a COVID test and the patient's RN was notified.
--- NOTE | 2020-07-16 10:17 | NUR ---
Patient working with therapy this morning. Tolerated diet well this morning. Denied pain. Patient did report that she started last night to have less strength in the right hand. Not only was it numb and tingling, but increased weakness compared to the left hand. This is different then it was. Will continue to monitor.
--- NOTE | 2020-07-16 14:29 | NUR ---
ELISA met with the patient to update about [facility] acceptance. The patient is agreeable to going to [facility] tomorrow. SW presented and read the IM form outloud to her. The patient verbalized understanding and gave ELISA approval to sign the form on her behalf. SW provided her with a copy.
--- NOTE | 2020-07-16 15:44 | NUR ---
Patient currently receiving her IVIG right now. Patient reports that she has had two other treatments of this sort prior to this hospitilization and has tolerated it well. Patient currently visiting with daughter at this time. Will continue to monitor.
--- NOTE | 2020-07-16 16:07 | NUR ---
The patient's RN notified ELISA that the patient's daughter is here and she is stating that they are going to [facility]. ELISA met with the patient and her daughter, Cherelle, to follow up. Cherelle reports that she received a phone call from Roverto at [facility] and Roverto informed her that the plan was for the patient to go to them tomorrow. ELISA informed Cherelle how [facility] has not even informed ELISA if they can accept the patient or not. ELISA reviewed how [facility] has accepted. The patient states that even if [facility] does accept, she would prefer [facility]. Cherelle was supportive of the patient's preference, but would like to know [facility]'s visiting hours. ELISA contacted Rox at [facility] and requested that she contact Cherelle.
--- NOTE | 2020-07-16 16:31 | NUR ---
Roverto, at [facility], reports that they are able to accept the patient. ELISA met with the patient and her daughter, Cherelle, to inform. The patient and Cherelle report that they would prefer to pursue SNF at [facility].
--- NOTE | 2020-07-16 16:50 | NUR ---
Patient tolerating the IVIG administration. Patient resting in bed, call light in reach and bed alarm set visiting with daughter at this time. Will continue to monitor. Patient will be discharging to a SNF and will follow up with her PCP upon discharge.
--- NOTE | 2020-07-16 20:29 | NUR ---
Patient attended all therapies today and was able to sit on the side of the bed without assistance for a short time this shift. Patient denies pain. Continues to be treated for a Stage II ulcer to her coccyx and is repositioned every 2 hours. Patient denies questions at this time. Will continue to monitor.
--- NOTE | 2020-07-16 20:30 | NUR ---
IVIG COMPLETED. VSS.
--- NOTE | 2020-07-16 20:40 | NUR ---
PT TOLERATED #2IVIG INFUSION WELL. NO REACTIONS, HPO/HYPERTENSION, TACHYCARDIA, N/V OR CHILLS.
--- NOTE | 2020-07-16 21:26 | NUR ---
CHANGED PURIWICK AT THIS TIME. MEPILEX COCCYX DRSG DRY AND IN PLACE. CALLIGHT IN REACH. BED ALARM SET.
--- NOTE | 2020-07-16 21:36 | NUR ---
PT RESSTING IN BED. PLEASANT AND COOPERATIVE. LIMITED ROM AND PHYSICAL STRENGTH. MAINTENANCE SUPERVISOR ELECTRICAL VERY WEAK. POOR DEXTERITY. PLANS FOR [facility] TOMORROW. NO NEEDS AT THIS TIEM. CALL LIGHT IN REACH. BED ALARM SET.
[2020-07-17 05:11] VITALS: BP 90/59; PULSE 90; TEMP 98
--- NOTE | 2020-07-17 09:03 | NUR ---
PT SLEEPING IN BED AT BEDSIDE SHIFT REPORT. PT ASSISTED TO REPOSITION AND CHECKED FOR INCONTINENCE PRIOR TO BREAKFAST. PT REPORTS BASELINE PAIN IN FINGERS AND TOES NOW INCLUDES HER HANDS. FEELS IT IS MORE DIFFICULT TO GRASP NOW. GIVEN SCHEDULED TRAMADOL AND WILL REASSESS.
[2020-07-17] MEDS ORDERED: CARTIA XT180 MG PO (10:12)
[2020-07-17] MEDS ORDERED: FLORINEF ACETA0.1 MG PO (10:13)
[2020-07-17] MEDS ORDERED: MELATIN 3 MG-11 TAB PO (10:14)
[2020-07-17] MEDS ORDERED: ULTRAM 50MG TAB50 MG PO (10:14)
[2020-07-17] MEDS ORDERED: ZINC OXIDE 28GM TOP (10:14)
--- NOTE | 2020-07-17 10:55 | NUR ---
The patient's COVID results came back negative. ELISA faxed the results to [facility]. The patient is to discharge today, 07/17, to [facility] for a skilled stay. Transportation was scheduled around 1300, via [facility]. ELISA informed the patient's RN and the patient's daughter, Cherelle, over the phone. They were all agreeable to the time. No additional needs at this time.
--- NOTE | 2020-07-17 13:46 | NUR ---
PT HEALTH SUMMARY, DISCHARGE SUMMARY, AND HOME MEDS PRINTED AND SENT WITH HER SNF [facility]. FOLLOW UP APPOINTMENTS WERE RELAYED TO SNF. PRINTED PRESCRIPTION FOR TRAMADOL SENT WITH PT. BELONGINGS GATHERED BY ANTIQUER INCLUDING ARTIFICIAL STONE SETTER. PT TRANSPORTED VIA WC BY NURSE AND REPAIR SERVICER AND SEATBELTED FOR RIDE TO SNF. REPORT CALLED AND GIVEN TO STANFORD AT [facility]. PHONE NUMBER PROVIDED IF ANY QUESTIONS ARISE.
--- NOTE | 2020-07-20 14:29 | NUR ---
Discharge QIM scores were reviewed by the team. Code of 3 chosen for toilet hygiene was determined by team discussion to be the most usual performance for this patient during the assessment period. Code of 1 chosen for toileting transfers was determined by team discussion to be the most usual performance for this patient during the assessment period. Code of 3 chosen for upper body dressing was determined by team discussion to be the most usual performance for this patient during the assessment period. Code of 2 chosen for putting on/taking off footwear was determined by team discussion to be the most usual performance for this patient during the assessment period. Code of 4 chosen for rolling left to right was determined by team discussion to be the most usual performance for this patient during the assessment period. Code of 4 chosen for sit to lying was determined by team discussion to be the most usual performance for this patient during the assessment period. Code of 4 chosen for lying to sitting on side of bed was determined by team discussion to be the most usual performance for this patient during the assessment period. Code of 1 for sit to stand was determined by team discussion to be the most usual performance for this patient during the assessment period.--Leila Fernandez, PD
== END 2020-07-17 13:49 | DRG 74 ==
PROVIDERS: Hospitalist; ADMIT Internal Medicine
DX: G61.81 Chronic inflammatory demyelinating polyneuritis (principal); E44.0 Moderate protein-calorie malnutrition; I10 Essential (primary) hypertension; F32.9 Major depressive disorder, single episode, unspecified; R13.10 Dysphagia, unspecified; M19.90 Unspecified osteoarthritis, unspecified site; I95.1 Orthostatic hypotension; M50.21 Other cervical disc displacement, high cervical region; Z20.822 Contact with and (suspected) exposure to COVID-19; R74.01 Elevation of levels of liver transaminase levels; R73.9 Hyperglycemia, unspecified; K59.00 Constipation, unspecified; E78.5 Hyperlipidemia, unspecified; Z79.891 Long term (current) use of opiate analgesic; Z91.81 History of falling; Z90.710 Acquired absence of both cervix and uterus
CPT/HCPCS: 99222-AI; 99231-AI; 99232-AI; 99233-AI; 99239; J1569; J1650

== ENCOUNTER 2020-08-06 10:04 | Outpatient (CLI) | payer OTHER, MEDICAID ==
[2020-08-06] VITALS (16 sets, daily range): BP systolic 106–136; BP diastolic 55–80; PULSE 83–102; TEMP 97.7–98.7
[~2020-08-06] VITALS: Ht 167.6 cm; Wt 61.3 kg
[~2020-08-06 10:04] MED LIST changes: +CARTIA XT180 MG PO; +FLORINEF ACETA0.1 MG PO; +LOVENOX 4040 MG/0.4 SQ; +MELATIN 3 MG-11 TAB PO; +ZINC OXIDE 28GM TOP
--- NOTE | 2020-08-06 11:26 | NUR ---
500ml bolus completed, rate decreased to 100ml/hr. Pt states she is no longer lightheaded. Pain to mid back improved but not resolved. Pt repositioned again in bed with additional relief in pain. Call light in reach.
[2020-08-06] MEDS ORDERED: JUVEN1 PDR PO (12:06)
[2020-08-06] MEDS ORDERED: TYLENOL SU650 MG/SUP RC (12:08)
[2020-08-06] MEDS ORDERED: GENTLE LAXATIVE10 MG RC (12:09)
[2020-08-06] MEDS ORDERED: CARTIA XT180 MG PO (12:10)
[2020-08-06] MEDS ORDERED: DEBROX OT (12:16)
[2020-08-06] MEDS ORDERED: COLACE 100100 MG/CAP PO (12:17)
[2020-08-06] MEDS ORDERED: IMODIUM 2MG CAPS2 MG PO (12:19)
[2020-08-06] MEDS ORDERED: MYLANTA 150 ML150 M1 PO (12:23)
[2020-08-06] MEDS ORDERED: MILK OF MA400 MG/52 PO (12:23)
[2020-08-06] MEDS ORDERED: NEURONTIN300 MG/CAP PO (12:24)
[2020-08-06] MEDS ORDERED: PROTONIX 40MG T40 MG PO (12:25)
[2020-08-06] MEDS ORDERED: ULTRAM 50MG TAB50 MG PO (12:26)
[2020-08-06] MEDS ORDERED: ZINC OXIDE56.7 GM TP (12:27)
--- NOTE | 2020-08-06 16:28 | NUR ---
PICC flushed and upper arm wrapped with jorge bandage. Pt assisted back to wheelchair after changing brief, and she was taken down to waiting room where [facility] transport staff was waiting.
== END 2020-08-06 16:39 | disposition home or self-care (01) ==
LOC: EUO 10:04
DX: G61.81 Chronic inflammatory demyelinating polyneuritis (principal)
CPT/HCPCS: J1569

== ENCOUNTER 2020-08-27 10:03 | Outpatient (CLI) | payer MEDICARE, MEDICAID ==
[~2020-08-27] VITALS: Ht 167.6 cm; Wt 138.0 kg
[2020-08-27] VITALS (14 sets, daily range): BP systolic 103–137; BP diastolic 55–94; PULSE 73–82; TEMP 97.6–98.5
[~2020-08-27 10:03] MED LIST changes: +COLACE 100100 MG/CAP PO; +DEBROX OT; +GENTLE LAXATIVE10 MG RC; +IMODIUM 2MG CAPS2 MG PO; +JUVEN1 PDR PO; +MILK OF MA400 MG/52 PO; +MYLANTA 150 ML150 M1 PO; +TYLENOL SU650 MG/SUP RC; +ZINC OXIDE56.7 GM TP
--- NOTE | 2020-08-27 10:40 | NUR ---
Here for an infusion. PICC intact right upper arm with dressing dated 08/26/20 with no chlorhexidine imprgnated disk applied. Sterile dressing change done with insertion site cleansed with chloraprep x 1, chlorhexidine impregnated disk applied, skin prep, stat lock, and tegaderm applied. no signs or symptoms of IV complications noted. no concerns voiced. re-wrapped with an jorge to protect catheter. to continue with cares at [facility].
--- NOTE | 2020-08-27 16:45 | NUR ---
Pt has tolerated IVIG infusion well. Mervat started her infusion in wheelchair, then moved to a bed in rm 12 at 1205. She ordered a small snack lunch, which she was able to eat with no problem. Pt's attends were changed during her stay, and pt had good mobility in bed and was able to roll back and forth with no problem. Pt did sleep on and off and was without complaint. after her infusion, PICC line was flushed with 20 cc ns and clamped. wrapped with jorge wrap. to exit via wheelchair where transportation was waiting. next appointment scheduled for 09/17 at 1000, appointment card was given. I called report to Earnest gallardo at [facility] and gave report to a nurse there.
== END 2020-08-27 16:45 | disposition home or self-care (01) ==
LOC: EUO 10:03
DX: G61.81 Chronic inflammatory demyelinating polyneuritis (principal); Z79.899 Other long term (current) drug therapy
CPT/HCPCS: J1569

== ENCOUNTER 2020-09-17 09:53 | Outpatient (CLI) | payer MEDICARE, MEDICAID ==
[~2020-09-17] VITALS: Ht 167.6 cm; Wt 64.0 kg
[2020-09-17] VITALS (13 sets, daily range): BP systolic 84–138; BP diastolic 52–84; PULSE 66–77; TEMP 98.3–98.4
[2020-09-17] MEDS ORDERED: MYLANTA 150 ML150 M1 PO (11:47)
[2020-09-17] MEDS ORDERED: NEURONTIN300 MG/CAP PO (11:47)
[2020-09-17] MEDS ORDERED: PROTONIX 40MG T40 MG PO (11:48)
[2020-09-17] MEDS ORDERED: ULTRAM 50MG TAB50 MG PO (11:48)
--- NOTE | 2020-09-17 16:00 | NUR ---
Brief changed, and adrienne cares completed. Pt has been able to adjust her positioning in bed during infusion. She tolerates infusion without issue. PICC dressing was changed by AMBER Amos, and new caps were placed. Pt assisted out to long term's transport van.
== END 2020-09-17 16:02 | disposition home or self-care (01) ==
LOC: EUO 09:53
DX: G61.81 Chronic inflammatory demyelinating polyneuritis (principal)
CPT/HCPCS: J1569

== ENCOUNTER 2020-10-08 09:59 | Outpatient (CLI) | payer OTHER, MEDICAID ==
[2020-10-08] VITALS (10 sets, daily range): BP systolic 90–133; BP diastolic 50–78; PULSE 69–88; TEMP 97–98
[~2020-10-08] VITALS: Ht 167.6 cm; Wt 57.6 kg
[2020-10-08] MEDS ORDERED: COPPER GLUCONATE PO (10:59)
[2020-10-08] MEDS ORDERED: VITAMIN B12 1541 TAB PO (10:59)
[2020-10-08] MEDS ORDERED: IRON TABLETS325 MG PO (11:00)
--- NOTE | 2020-10-08 16:45 | NUR ---
infusion completed at 1630, pt has no c/o, next appt set and written on form for nursing facility, report called to [facility] to [facility] and transportation lined up, no changes in earlier assessment, PICC flushed with saline and wrapped wit coban as when pt arrived
== END 2020-10-08 17:00 ==
LOC: EUO 09:59
DX: G61.81 Chronic inflammatory demyelinating polyneuritis (principal); Z79.899 Other long term (current) drug therapy
CPT/HCPCS: J1569

== ENCOUNTER 2020-10-29 09:52 | Outpatient (CLI) | payer OTHER, MEDICAID ==
[2020-10-29] VITALS (13 sets, daily range): BP systolic 114–135; BP diastolic 44–70; PULSE 63–74; TEMP 97.4–98.1
[~2020-10-29] VITALS: Ht 167.6 cm; Wt 63.0 kg
[~2020-10-29 09:52] MED LIST changes: +COPPER GLUCONATE PO; +IRON TABLETS325 MG PO; +VITAMIN B12 1541 TAB PO
[2020-10-29] MEDS ORDERED: CYANOCOBAL1000 MCG/1 IM (10:14)
[2020-10-29] MEDS ORDERED: DEBROX OT (10:14)
[2020-10-29] MEDS ORDERED: FLEET MINE1 BOT/133 RC (10:15)
[2020-10-29] MEDS ORDERED: IMODIUM 2MG CAPS2 MG PO (10:31)
[2020-10-29] MEDS ORDERED: LEXAPRO 10MG10 MG PO (10:31)
[2020-10-29] MEDS ORDERED: [UNRECOGNIZED DRUG - OTHER] TOP (10:33)
[2020-10-29] MEDS ORDERED: NEURONTIN300 MG/CAP PO (10:42)
[2020-10-29] MEDS ORDERED: TYLENOL 325MG325 MG PO (10:44)
[2020-10-29] MEDS ORDERED: VITAMIND3 5000 PO (10:45)
--- NOTE | 2020-10-29 11:45 | NUR ---
Patient here for an infusion. PICC intact right upper arm with chlorahexidine disk present. sterile dressing change done and disk applied.
== END 2020-10-29 15:30 ==
LOC: EUO 09:52
DX: G61.81 Chronic inflammatory demyelinating polyneuritis (principal); Z95.9 Presence of cardiac and vascular implant and graft, unspecified
CPT/HCPCS: J1569

== ENCOUNTER 2020-11-19 10:03 | Outpatient (CLI) | payer OTHER, MEDICAID ==
[~2020-11-19] VITALS: Ht 167.6 cm; Wt 63.8 kg
[2020-11-19] VITALS (16 sets, daily range): BP systolic 116–154; BP diastolic 47–75; PULSE 60–85; TEMP 97.7–99.1
[~2020-11-19 10:03] MED LIST changes: +CYANOCOBAL1000 MCG/1 IM; +FLEET MINE1 BOT/133 RC; +[UNRECOGNIZED DRUG - OTHER] TOP
--- NOTE | 2020-11-19 17:45 | NUR ---
Pt did well today with her IGG infusions. pt tolerated infusions without any adverse or allergic reaction. She has been alert and oriented. napping occasionally. able to use call light. Brief was changed twice for incontinence of urine, pericare provided. pt mobile in bed, able to roll from side to side and push herself up in bed. pt ate a few cookies, and drank with a straw with no problem. PICC dressing was changed prior to pt's departure because I had to interrupt present dressing to get to the clamps. pt was escorted to exit via wheelchair. pt transferred with assist x 1. card with her next appointment time was sent with pt.
[2020-11-19] MEDS ORDERED: OSCAL 500 TAB500 MG PO (20:09)
[2020-11-19] MEDS ORDERED: PREDNISONE10 MG PO (20:11)
== END 2020-11-19 20:12 ==
LOC: EUO 10:03
DX: G61.81 Chronic inflammatory demyelinating polyneuritis (principal)
CPT/HCPCS: J1569

== ENCOUNTER 2020-12-09 11:26 | Observation (INO) | payer MEDICARE, MEDICAID ==
[~2020-12-09] VITALS: Ht 167.6 cm; Wt 61.4 kg
[~2020-12-09 11:26] MED LIST changes: +OSCAL 500 TAB500 MG PO; +PREDNISONE10 MG PO
[2020-12-09 12:27] LABS: BASO % 0.1 % (0.0-2.0); EOS % 0.1 % (0-4.0); GRAN # 4.8 (1.4-6.5); GRAN % 68.8 % (42.2-75.2); HEMATOCRIT 42.6 % (37.0-47.0); HEMOGLOBIN 14.4 g/dl (12.5-16.0); LYMPH # 1.3 (1.2-3.4); LYMPH % 19.3 % (20.0-51.0); MEAN CELL VOLUME 90 fl (80.0-100.0); MEAN CORPUSCULAR HEMOGLOBIN 31 pg (27.0-31.0); MEAN CORPUSCULAR HGB CONC 34 g/dl (33.0-37.0); MONO # 0.8 (0.1-0.6); MONO % 11.4 % (1.7-9.3); PLATELET COUNT 75 K/mm3 (130-400); RED BLOOD COUNT 4.72 M/mm3 (4.10-5.30); REDCELL DISTRIBUTION WIDTH-CV 17.1 % (11.5-14.5)
[2020-12-09 12:42] LABS: ALBUMIN 3.6 gm/dL (3.5-5.0); BILIRUBIN,TOTAL 1.3 mg/dL (0.0-1.0); CALCIUM 8.9 mg/dL (8.4-10.2); CREATININE, serum 0.42 (0.52-1.25); POTASSIUM 3.5 mmol/L (3.4-5.0); TOTAL PROTEIN 7.6 gm/dL (6.4-8.2)
[2020-12-09 13:01] LABS: TROPONIN-I 0.069 ng/mL (0.000-0.035)
[2020-12-09 13:13] LABS: TSH w REFLEX 0.976 uIU/mL (0.465-4.680)
[2020-12-09 17:00] VITALS: BP 120/72; PULSE 98; TEMP 98
[2020-12-09 19:37] VITALS: BP 138/70; PULSE 102; TEMP 98.4
[2020-12-09 19:40] VITALS: BP 138/70; PULSE 102; TEMP 98.4
[2020-12-09 20:10] VITALS: BP 138/70; PULSE 102; TEMP 98.4
[2020-12-09 23:52] VITALS: BP 127/61; PULSE 94; TEMP 97.4
[2020-12-10 04:08] VITALS: BP 107/58; PULSE 73; TEMP 97
--- NOTE | 2020-12-10 06:27 | NUR ---
PATIENT ALERT AND ORIENTEDX4. ADMITTED FOR GENERALIZE WEAKNESS. C/O MODERATE PAIN TO THE EXTREMITIES. TRAMADOL SCHEDUL, GIVEN ORDERED. IV INFUSING, TOLERATING AHA DIET. PATIENT INCONTINENT OF URINE. DL PICC TO PAIGE. SKIN INTACT. BED LOW AND LOCKED. WILL CONTINUE TO MONITOR.
[2020-12-10 06:58] LABS: CALCIUM 8.3 mg/dL (8.4-10.2); CREATININE, serum 0.58 (0.52-1.25); POTASSIUM 3.5 mmol/L (3.4-5.0)
[2020-12-10 07:39] VITALS: BP 106/54; PULSE 77; TEMP 98.5
[2020-12-10 08:28] LABS: BASO % 0.2 % (0.0-2.0); EOS % 0.8 % (0-4.0); GRAN # 2.2 (1.4-6.5); GRAN % 45.5 % (42.2-75.2); LYMPH # 1.9 (1.2-3.4); LYMPH % 40.2 % (20.0-51.0); MEAN CELL VOLUME 94 fl (80.0-100.0); MEAN CORPUSCULAR HGB CONC 32 g/dl (33.0-37.0); MONO # 0.6 (0.1-0.6); MONO % 12.9 % (1.7-9.3); PLATELET COUNT 62 K/mm3 (130-400); RED BLOOD COUNT 3.55 M/mm3 (4.10-5.30); REDCELL DISTRIBUTION WIDTH-CV 17.7 % (11.5-14.5)
[2020-12-10 08:31] LABS: HEMATOCRIT 33.4 % (37.0-47.0); MEAN CORPUSCULAR HEMOGLOBIN 30 pg (27.0-31.0)
[2020-12-10 08:32] LABS: HEMOGLOBIN 10.8 g/dl (12.5-16.0)
--- NOTE | 2020-12-10 08:48 | NUR ---
PT RESTING IN BED. EATING BREAKFAST. DENIES NEEDS OR PAIN AT THIS TIME. TROPONIN TRENDING DOWN.
--- NOTE | 2020-12-10 09:31 | NUR ---
Neonatal Critical Care Nurse attended clinical rounds with the team. PT/OT ordered.
[2020-12-10 09:36] LABS: IRON,SERUM 37 ug/dL (35-150)
[2020-12-10 09:45] LABS: TOTAL IRON BINDING CAPACITY 233 ug/dL (265-497)
--- NOTE | 2020-12-10 10:07 | NUR ---
Initial visit; Patient thanked Pig Sticker for looking in on her and offering prayer and God's blessings. Pig Sticker will keep Mervat in her prayers.
[2020-12-10 11:23] VITALS: BP 109/49; PULSE 74; TEMP 97.6
--- NOTE | 2020-12-10 12:15 | NUR ---
REVIEWED DISCHARGE INSTRUCTIONS WITH PT AND . QUESTIONS SOLICITED AND ANSWERED. PT LEFT PER WHEEL CHAIR ACCOMPANIED BY STAFF.
--- NOTE | 2020-12-10 13:30 | NUR ---
Patient admitted with right upper arm PICC. dressing dated 12/02/20. sterile dressing change done with insertion site cleansed with chloraprep x 1, chlorhexidine impregnated disk applied, skin prep, stat lock, and tegaderm applied. gauze removed from site. no CHG disk present. NASRA Chambers to change caps, home with PICC. no signs or symptoms of IV complications noted. no concerns.
--- NOTE | 2020-12-10 13:48 | NUR ---
PICC DRESSING CHANGED AND CAPS CHANGED PER ORA HAMMONDS AIV.
--- NOTE | 2020-12-10 14:05 | NUR ---
The patient discharged today, 12/10 before this Program Advocate could complete intake. She discharged home with [facility]. Discharge orders faxed. PT elfego recommended home with home health. The patient's daughter provided transportation. Program Advocate contacted Nuha with [facility]. She reports they began services on Thursday 12/07 after 100 day SNF stay at [facility]. [facility] will continue home health for the patient. *Discharge disposition: Home with family and [facility]. PT/OT/Nursing*
== END 2020-12-10 12:16 | disposition home or self-care (01) ==
LOC: COL.ER 11:26 → SURG 15:00
PROVIDERS: Emergency Medicine; Physician Assistant
DX: K51.00 Ulcerative (chronic) pancolitis without complications (principal); I25.2 Old myocardial infarction; D64.9 Anemia, unspecified; R74.01 Elevation of levels of liver transaminase levels; I10 Essential (primary) hypertension; E87.1 Hypo-osmolality and hyponatremia; D69.6 Thrombocytopenia, unspecified; E78.5 Hyperlipidemia, unspecified; F32.9 Major depressive disorder, single episode, unspecified; M19.90 Unspecified osteoarthritis, unspecified site; G61.81 Chronic inflammatory demyelinating polyneuritis; F41.9 Anxiety disorder, unspecified; Z79.899 Other long term (current) drug therapy; Z20.822 Contact with and (suspected) exposure to COVID-19
CPT/HCPCS: G0378; J0500; J2405; J7030; J7120; Q9967

== ENCOUNTER 2020-12-17 10:02 | Outpatient (CLI) | payer MEDICARE, MEDICAID ==
[2020-12-17] VITALS (11 sets, daily range): BP systolic 119–156; BP diastolic 59–90; PULSE 66–87; TEMP 98–98.7
[~2020-12-17] VITALS: Ht 167.6 cm; Wt 56.0 kg
== END 2020-12-17 16:30 | disposition home or self-care (01) ==
LOC: EUO 10:02
DX: G61.81 Chronic inflammatory demyelinating polyneuritis (principal)
CPT/HCPCS: J1569

== ENCOUNTER 2021-01-07 10:07 | Outpatient (CLI) | payer MEDICARE, MEDICAID ==
[~2021-01-07] VITALS: Ht 167.6 cm; Wt 60.3 kg
[2021-01-07] VITALS (11 sets, daily range): BP systolic 120–140; BP diastolic 47–83; PULSE 65–87; TEMP 98–98.7
--- NOTE | 2021-01-07 13:15 | NUR ---
Patient is seen in the express unit for IV administration. Patient's right upper arm PICC with dressing intact. No chlorhexidine impregnated disc present. Patient's right upper arm PICC dressing change done with sterile technique with insertion site cleansed with ChloraPrep x1, chlorhexidine impregnated disc applied, skin prep, StatLock, and Tegaderm applied. No signs or symptoms of IV complications noted. No concerns voiced. Arm wrapped with Deepak to protect catheter.
== END 2021-01-07 16:19 | disposition home or self-care (01) ==
LOC: EUO 10:07
DX: G61.81 Chronic inflammatory demyelinating polyneuritis (principal)
CPT/HCPCS: J1569

== ENCOUNTER 2021-01-28 10:04 | Outpatient (CLI) | payer MEDICARE, MEDICAID ==
[~2021-01-28] VITALS: Ht 167.6 cm; Wt 63.0 kg
[2021-01-28] VITALS (8 sets, daily range): BP systolic 117–137; BP diastolic 56–78; PULSE 72–81; TEMP 98–98.4
== END 2021-01-28 15:00 | disposition home or self-care (01) ==
LOC: EUO 10:04
DX: G61.81 Chronic inflammatory demyelinating polyneuritis (principal); Z79.899 Other long term (current) drug therapy
CPT/HCPCS: J1569

== ENCOUNTER 2021-02-18 10:08 | Outpatient (CLI) | payer MEDICARE, MEDICAID ==
[~2021-02-18] VITALS: Ht 167.6 cm; Wt 68.3 kg
[2021-02-18] VITALS (8 sets, daily range): BP systolic 100–1330; BP diastolic 48–74; PULSE 64–74; TEMP 96.8
== END 2021-02-18 15:10 ==
LOC: EUO 10:08
DX: G61.81 Chronic inflammatory demyelinating polyneuritis (principal)
CPT/HCPCS: J1569

== ENCOUNTER 2021-02-25 10:07 | Emergency (ER) | payer MEDICARE, MEDICAID ==
[~2021-02-25] VITALS: Ht 152.4 cm; Wt 64.1 kg
[2021-02-25 11:04] VITALS: TEMP 98.5
[2021-02-25 11:49] LABS: BASO % 0.6 % (0.0-2.0); EOS % 0.6 % (0-4.0); GRAN # 1.4 (1.4-6.5); GRAN % 46.7 % (42.2-75.2); HEMATOCRIT 37.6 % (37.0-47.0); LYMPH # 1.1 (1.2-3.4); LYMPH % 35.3 % (20.0-51.0); MEAN CELL VOLUME 97 fl (80.0-100.0); MEAN CORPUSCULAR HEMOGLOBIN 31 pg (27.0-31.0); MEAN CORPUSCULAR HGB CONC 32 g/dl (33.0-37.0); MONO # 0.5 (0.1-0.6); MONO % 16.8 % (1.7-9.3); PLATELET COUNT 150 K/mm3 (130-400); RED BLOOD COUNT 3.87 M/mm3 (4.10-5.30); REDCELL DISTRIBUTION WIDTH-CV 14.6 % (11.5-14.5)
[2021-02-25 12:21] LABS: ALBUMIN 2.7 gm/dL (3.4-4.8); BILIRUBIN,TOTAL 0.3 mg/dL (0.2-1.2); CALCIUM 9.2 mg/dL (8.4-10.2); CREATININE, serum 0.71 mg/dL (0.57-1.11); POTASSIUM 3.9 mmol/L (3.5-4.5); TOTAL PROTEIN 7.1 gm/dL (6.2-8.1)
[2021-02-25 14:07] VITALS: BP 142/84; PULSE 83
== END 2021-02-25 14:04 | disposition home or self-care (01) ==
LOC: COL.ER 10:07
PROVIDERS: Personal Emergency Response Attendant
DX: R10.30 Lower abdominal pain, unspecified (principal); F41.9 Anxiety disorder, unspecified; F32.9 Major depressive disorder, single episode, unspecified; Z98.84 Bariatric surgery status; Z79.899 Other long term (current) drug therapy
CPT/HCPCS: J2270; J2405; J7030; Q9967

== ENCOUNTER 2021-03-18 10:04 | Outpatient (CLI) | payer MEDICARE, MEDICAID ==
[2021-03-18] VITALS (9 sets, daily range): BP systolic 128–135; BP diastolic 65–74; PULSE 62–68; TEMP 97.5
[~2021-03-18] VITALS: Ht 152.4 cm; Wt 49.0 kg
== END 2021-03-18 13:40 | disposition home or self-care (01) ==
LOC: EUO 10:04
DX: G61.81 Chronic inflammatory demyelinating polyneuritis (principal)
CPT/HCPCS: J1569

== ENCOUNTER 2021-04-08 10:02 | Outpatient (CLI) | payer MEDICARE, MEDICAID ==
[2021-04-08] VITALS (8 sets, daily range): BP systolic 133–153; BP diastolic 62–78; PULSE 63–71; TEMP 98.4
[~2021-04-08] VITALS: Ht 152.4 cm; Wt 72.4 kg
== END 2021-04-08 16:07 ==
LOC: EUO 10:02
DX: G61.81 Chronic inflammatory demyelinating polyneuritis (principal); Z79.899 Other long term (current) drug therapy
CPT/HCPCS: J1569

== ENCOUNTER 2021-04-13 11:30 | Observation (INO) | payer MEDICARE, MEDICAID ==
[~2021-04-13] VITALS: Ht 152.4 cm; Wt 67.7 kg
[2021-04-13 17:27] VITALS: BP 149/70; PULSE 69; TEMP 98.4
[2021-04-13] MEDS ORDERED: VITAMIN B11000 MCG/M IM (17:34)
[2021-04-13 19:52] VITALS: BP 129/59; PULSE 68; TEMP 98.2
[2021-04-14] VITALS (7 sets, daily range): BP systolic 119–164; BP diastolic 65–78; PULSE 65–85; TEMP 97.3–98.5
--- NOTE | 2021-04-14 11:12 | NUR ---
ASSESMENTS COMPLETE, VSS, PT TO ENDO FOR PROCEEDURE. BOWEL PREP COMPLETE. REPORT TO BRENNA HAMMONDS.
--- NOTE | 2021-04-14 12:00 | NUR ---
ELISA met with the patient to discuss discharge plan. The patient lives in [place] with her daughter, Cherelle (ph#[phone]), son-in-law, and two grandsons. She reports needing assistance with bathing and has a walker. She reports that she receives services from [facility] and they assist her with bathing. ELISA attempted to contact Nuha at [facility] to confirm services. ELISA left her a voicemail and faxed her updates. The patient's PCP is Dr. Zully Caraballo and she receives her medications from [facility] in . She reports no difficulties obtaining her meds. The patient's DPOA-HC is in EMR and it designates her daughter, Cherelle, and her sister, Nadya, as the alternate. The patient plans to return home with her family and resume services from [facility] upon discharge. SW to continue to follow as needed. *Discharge plan: home with family and home health*
--- NOTE | 2021-04-14 14:23 | NUR ---
PT CAME BACK FROM PROCEEDURE NAUSEATED, SEVERAL BOUTS OF EMESIS OBSERVED. SOFRAN IV GIVEN.
[2021-04-14 16:27] LABS: BASO % 0.3 % (0.0-2.0); GRAN # 5.8 K/mm3 (1.4-6.5); GRAN % 87.3 % (42.2-75.2); HEMATOCRIT 38.8 % (37.0-47.0); HEMOGLOBIN 13.1 g/dl (12.5-16.0); LYMPH # 0.5 K/mm3 (1.2-3.4); LYMPH % 7.1 % (20.0-51.0); MEAN CELL VOLUME 94 fl (80.0-100.0); MEAN CORPUSCULAR HEMOGLOBIN 32 pg (27.0-31.0); MEAN CORPUSCULAR HGB CONC 34 g/dl (33.0-37.0); MEAN PLATELET VOLUME 12.1 fl (7.4-10.4); MONO # 0.3 K/mm3 (0.1-0.6); PLATELET COUNT 131 K/mm3 (130-400); RED BLOOD COUNT 4.13 M/mm3 (4.10-5.30); REDCELL DISTRIBUTION WIDTH-CV 13.9 % (11.5-14.5)
[2021-04-14 16:41] LABS: BILIRUBIN,TOTAL 0.3 mg/dL (0.2-1.2); CALCIUM 9.1 mg/dL (8.4-10.2); CREATININE, serum 0.7 mg/dL (0.57-1.11); POTASSIUM 3.9 mmol/L (3.5-4.5); TOTAL PROTEIN 7.6 gm/dL (6.2-8.1)
--- NOTE | 2021-04-14 20:00 | NUR ---
PT IN BED, REFUSES HS MEDS. HAS IVF TO RT PICC INFUSING WITHOUT PROBLEM. IS DROWSY, DENIES PAIN.
[2021-04-15] VITALS (8 sets, daily range): BP systolic 130–188; BP diastolic 59–88; PULSE 83–114; TEMP 97.7–98.8
--- NOTE | 2021-04-15 00:12 | NUR ---
HAS LARGE INCONTINENCE OF URINE, LINENS CHANGED AND KAMLESH CARE PROVIDED.
--- NOTE | 2021-04-15 01:34 | NUR ---
PT WITH ELEVATED B/P, 188/88. MEDICATED WITH HYDRALAZINE 10MG IVP AT THIS TIME.
--- NOTE | 2021-04-15 02:40 | NUR ---
B/P 176/79.
--- NOTE | 2021-04-15 05:31 | NUR ---
PT MEDICATED WITH HYDRALAZINE 10MG IVP FOR ELEVATED B/P.
--- NOTE | 2021-04-15 06:40 | NUR ---
B/P 140/79. PT REPORTS HEADACHE.
--- NOTE | 2021-04-15 08:00 | NUR ---
PT IS ALERT AND ORIENTED THIS AM. PT IS DROWSY BUT EASILY AROUSED. PT DOES NOT COMPLAIN OF ANY PAIN BUT DOES COMPLAIN OF SOME NAUSEA. SHIFT ASSESSMENT COMPLETE AND MORNING MEDICATIONS GIVEN. PT HAS NO OTHER NEEDS AT THIS TIME. CALL LIGHT AND PT BELONGINGS WITHIN REACH.
[2021-04-15] MEDS ORDERED: ZOFRAN ODT4 MG PO (14:46)
--- NOTE | 2021-04-15 16:46 | NUR ---
The patient is to discharge back home with his family today, 04/15, with home health services for retirement/PT/OT from [facility]. ELISA faxed discharge orders to Nuha at [facility]. No additional needs at this time.
--- NOTE | 2021-04-15 17:55 | NUR ---
PATIENT DISCHARGING HOME WITH DAUGHTER. GAVE DISCHARGE INSTRUCTIONS, E-SCRIPT SENT, AND DISCUSSED F/U APT. ANSWERED QUESTIONS/CONCERNS. PATIENT DISCHARGED WITH RUE PICC LINE THAT SHE WAS ADMITTED WITH. PATIENT IS DRESSED, PACKED AND DISCHARGED VIA WC TO PERSONAL VEHICLE.
== END 2021-04-15 18:00 | disposition home or self-care (01) ==
LOC: SURG 11:30 → SDCO 04-14 11:30 → SURG 04-14 11:30 → EDSTATUS 04-14 11:30 → SURG 04-15 18:00
PROVIDERS: Physician Assistant; ADMIT Internal Medicine
DX: K21.9 Gastro-esophageal reflux disease without esophagitis (principal); R11.10 Vomiting, unspecified; K29.50 Unspecified chronic gastritis without bleeding; K44.9 Diaphragmatic hernia without obstruction or gangrene; I10 Essential (primary) hypertension; D64.9 Anemia, unspecified; G61.81 Chronic inflammatory demyelinating polyneuritis; M19.90 Unspecified osteoarthritis, unspecified site; F32.A Depression, unspecified; F41.9 Anxiety disorder, unspecified; Z98.84 Bariatric surgery status; Z79.899 Other long term (current) drug therapy; Z79.891 Long term (current) use of opiate analgesic
CPT/HCPCS: 99232-AI; G0378; G0379; J0360; J2405; J2550; J2704; J3475; J7120

== ENCOUNTER 2021-04-29 08:53 | Outpatient (CLI) | payer MEDICARE, MEDICAID ==
[~2021-04-29] VITALS: Ht 152.4 cm; Wt 69.5 kg
[2021-04-29] VITALS (13 sets, daily range): BP systolic 99–136; BP diastolic 52–72; PULSE 60–66; TEMP 98.2
[~2021-04-29 08:53] MED LIST changes: +VITAMIN B11000 MCG/M IM; +ZOFRAN ODT4 MG PO
== END 2021-04-29 14:43 | disposition home or self-care (01) ==
LOC: EUO 08:53
DX: G61.81 Chronic inflammatory demyelinating polyneuritis (principal)
CPT/HCPCS: J1569

== ENCOUNTER 2021-05-20 09:56 | Outpatient (CLI) | payer MEDICARE, MEDICAID ==
[~2021-05-20] VITALS: Ht 152.4 cm; Wt 76.4 kg
[2021-05-20] VITALS (12 sets, daily range): BP systolic 111–142; BP diastolic 57–83; PULSE 62–77; TEMP 98.3–99
== END 2021-05-20 15:18 | disposition home or self-care (01) ==
LOC: EUO 09:56
DX: G61.81 Chronic inflammatory demyelinating polyneuritis (principal); G61.0 Guillain-Barre syndrome
CPT/HCPCS: J1569

== ENCOUNTER 2021-06-10 09:50 | Outpatient (CLI) | payer MEDICARE, MEDICAID ==
[2021-06-10] VITALS (11 sets, daily range): BP systolic 108–128; BP diastolic 54–77; PULSE 64–79
[2021-06-10] MEDS ORDERED: COLACE 100100 MG/CAP PO (13:35)
[2021-06-10] MEDS ORDERED: MELATONIN3 M1 PO (13:37)
[2021-06-10] MEDS ORDERED: MIRALAX PA17 GM/Dose PO (13:38)
--- NOTE | 2021-06-10 15:38 | NUR ---
Pt escorted out to pt entrance where she will wait for her daughter. Gait steady with walker. She leaves with her personal belongings. PICC caps and dressing were changed while pt was in dept. Line flushed following infusion.
== END 2021-06-10 15:42 | disposition home or self-care (01) ==
LOC: EUO 09:50
DX: G61.81 Chronic inflammatory demyelinating polyneuritis (principal)
CPT/HCPCS: J1569

== ENCOUNTER 2021-07-06 09:59 | Outpatient (CLI) | payer MEDICARE, MEDICAID ==
[2021-07-06] VITALS (10 sets, daily range): BP systolic 120–140; BP diastolic 54–64; PULSE 62–70
[~2021-07-06] VITALS: Ht 152.4 cm; Wt 73.4 kg
[~2021-07-06 09:59] MED LIST changes: +MELATONIN3 M1 PO
== END 2021-07-06 17:09 | disposition home or self-care (01) ==
LOC: EUO 09:59
DX: G61.81 Chronic inflammatory demyelinating polyneuritis (principal)
CPT/HCPCS: J1569

== ENCOUNTER 2021-08-03 09:26 | Outpatient (CLI) | payer MEDICARE, MEDICAID ==
[~2021-08-03] VITALS: Ht 152.4 cm; Wt 72.4 kg
[2021-08-03] VITALS (8 sets, daily range): BP systolic 114–135; BP diastolic 49–60; PULSE 64–77; TEMP 97.6–98.1
== END 2021-08-03 14:15 | disposition home or self-care (01) ==
LOC: EUO 09:26
DX: G61.81 Chronic inflammatory demyelinating polyneuritis (principal)
CPT/HCPCS: J1569

== ENCOUNTER 2021-10-07 09:44 | Outpatient (CLI) | payer MEDICARE, MEDICAID ==
[~2021-10-07] VITALS: Ht 152.4 cm; Wt 72.1 kg
[~2021-10-07 09:44] MED LIST changes: +CYMBALTA 20MG20 MG PO; +NEURONTIN100 MG/CAP PO
[2021-10-07 10:40] VITALS: BP 120/55; PULSE 61; TEMP 98.5
[2021-10-07 11:10] VITALS: BP 123/75; PULSE 62
[2021-10-07 11:40] VITALS: BP 122/74; PULSE 60
[2021-10-07 12:25] VITALS: BP 133/74; PULSE 59
[2021-10-07 13:25] VITALS: BP 133/73; PULSE 66
[2021-10-07 14:40] VITALS: BP 116/71; PULSE 77
[2021-10-07] MEDS ORDERED: LEXAPRO 10MG10 MG PO (14:42)
--- NOTE | 2021-10-08 10:16 | NUR ---
Contacted patient's primary care physician's office, Dr. Caraballo, and visited with a nurse in regard to length of time PICC has been in place since 06/23/2020. There is no problem with the PICC. It is a dual lumen catheter and patient no longer needs a dual lumen catheter. Patient is to return on 10/28/2021 for IVIG administation. Await physician response.
== END 2021-10-07 15:23 ==
LOC: EUO 09:44
DX: G61.81 Chronic inflammatory demyelinating polyneuritis (principal)
CPT/HCPCS: J1569

== ENCOUNTER 2021-10-28 09:39 | Outpatient (CLI) | payer MEDICARE, MEDICAID ==
[2021-10-28] VITALS (10 sets, daily range): BP systolic 122–168; BP diastolic 55–84; PULSE 63–87; TEMP 98.8
[~2021-10-28] VITALS: Ht 152.4 cm; Wt 71.9 kg
== END 2021-10-28 16:45 ==
LOC: EUO 09:39
DX: G61.81 Chronic inflammatory demyelinating polyneuritis (principal)
CPT/HCPCS: C1751; C1892; J1569

== ENCOUNTER 2021-11-01 16:34 | Emergency (ER) | payer MEDICARE, MEDICAID ==
[~2021-11-01] VITALS: Ht 152.4 cm; Wt 72.7 kg
[2021-11-01 17:04] VITALS: TEMP 98.6
[2021-11-01 18:16] LABS: BASO % 0.6 % (0.0-2.0); EOS % 0.3 % (0.0-4.0); GRAN # 1.2 K/mm3 (1.4-6.5); GRAN % 38.6 % (42.2-75.2); HEMATOCRIT 37.1 % (37.0-47.0); HEMOGLOBIN 12.4 g/dl (12.5-16.0); LYMPH # 1.5 K/mm3 (1.2-3.4); LYMPH % 45.5 % (20.0-51.0); MEAN CELL VOLUME 97 fl (80.0-100.0); MEAN CORPUSCULAR HEMOGLOBIN 32 pg (27-31); MEAN CORPUSCULAR HGB CONC 33 g/dl (33.0-37.0); MEAN PLATELET VOLUME 11.8 fl (7.4-10.4); MONO # 0.5 K/mm3 (0.1-0.6); PLATELET COUNT 123 K/mm3 (130-400); RED BLOOD COUNT 3.83 M/mm3 (4.10-5.30); REDCELL DISTRIBUTION WIDTH-CV 14.3 % (11.5-14.5)
[2021-11-01 18:24] LABS: INR 1.2 (0.8-3.0); PROTHROMBIN TIME 13.8 SECONDS (9.7-12.8)
[2021-11-01 18:27] LABS: ALANINE AMINOTRANSFERASE 12 U/L (0-55); ALBUMIN 2.8 gm/dL (3.4-4.8); ALKALINE PHOSPHATASE 46 U/L (40-150); ANION GAP 10 mmol/L (7-16); AST,SGOT 21 U/L (5-34); BILIRUBIN,TOTAL 0.3 mg/dL (0.2-1.2); BLOOD UREA NITROGEN 8 mg/dL (10-20); CALCIUM 8.6 mg/dL (8.4-10.2); CARBON DIOXIDE 25 mmol/L (23-31); CHLORIDE 104 mmol/L (98-107); CREATININE, serum 0.74 mg/dL (0.57-1.11); GLUCOSE 86 mg/dL (70-99); LIPASE 20 U/L (8-78); POTASSIUM 3.8 mmol/L (3.5-4.5); SODIUM 139 mmol/L (136-145); TOTAL PROTEIN 7.9 gm/dL (6.2-8.1)
[2021-11-01 18:37] LABS: TROPONIN-I < 0.010 ng/mL (0.00-0.033)
[2021-11-01 18:55] LABS: COLLECTION METHOD CLEAN CATCH
[2021-11-01 19:07] LABS: AMORPHOUS CRYSTAL Present (NOT PRESENT); MUCOUS Present (NOT PRESENT); PH 6 (5-8); SQUAMOUS EPITHELIAL 0-2 /hpf (0-10); URINE APPEARANCE Clear (CLEAR/HAZY); URINE BACTERIA None Seen /hpf (NONE SEEN); URINE BILIRUBIN Negative (NEGATIVE); URINE BLOOD Negative (NEGATIVE); URINE COLOR Yellow (YELLOW); URINE GLUCOSE Negative (NEGATIVE); URINE KETONE Negative (NEGATIVE); URINE LEUKOCYTE ESTERASE Negative (NEGATIVE); URINE NITRATE Negative (NEGATIVE); URINE PROTEIN(semi-quant) Negative (NEGATIVE); URINE UROBILINOGEN Negative (NEGATIVE)
[2021-11-01 19:48] VITALS: BP 166/77; PULSE 64
== END 2021-11-01 19:49 | disposition home or self-care (01) ==
LOC: COL.ER 16:34
PROVIDERS: Nurse Practitioner Primary Care
DX: R05.9 Cough, unspecified (principal)
CPT/HCPCS: J2405

== ENCOUNTER 2021-11-18 09:45 | Outpatient (CLI) | payer MEDICARE, MEDICAID ==
[2021-11-18] VITALS (10 sets, daily range): BP systolic 126–137; BP diastolic 58–72; PULSE 59–71; TEMP 98.9
== END 2021-11-18 15:39 ==
LOC: EUO 09:45
DX: G61.81 Chronic inflammatory demyelinating polyneuritis (principal)
CPT/HCPCS: J1569

== ENCOUNTER 2021-12-09 09:38 | Outpatient (CLI) | payer MEDICARE, MEDICAID ==
[2021-12-09] VITALS (12 sets, daily range): BP systolic 126–138; BP diastolic 53–79; PULSE 59–70; TEMP 98.6
[~2021-12-09] VITALS: Wt 72.0 kg
== END 2021-12-09 15:39 ==
LOC: EUO 09:38
DX: G61.81 Chronic inflammatory demyelinating polyneuritis (principal)
CPT/HCPCS: J1569

== ENCOUNTER 2021-12-29 10:02 | Outpatient (CLI) | payer MEDICARE, MEDICAID ==
[~2021-12-29] VITALS: Ht 152.4 cm; Wt 78.5 kg
[2021-12-29] VITALS (9 sets, daily range): BP systolic 108–121; BP diastolic 50–70; PULSE 67–89; TEMP 98.4
[2021-12-29] MEDS ORDERED: NEURONTIN300 MG/CAP PO (11:18)
[2021-12-29] MEDS ORDERED: MULTI VITAMINS1 TAB PO (11:20)
== END 2021-12-29 18:32 | disposition home or self-care (01) ==
LOC: EUO 10:02
DX: G61.81 Chronic inflammatory demyelinating polyneuritis (principal)
CPT/HCPCS: J1569

== ENCOUNTER 2022-01-19 09:32 | Outpatient (CLI) | payer MEDICARE, MEDICAID ==
[2022-01-19] VITALS (13 sets, daily range): BP systolic 118–137; BP diastolic 48–83; PULSE 65–81; TEMP 98.1
[~2022-01-19] VITALS: Ht 152.4 cm; Wt 77.8 kg
[~2022-01-19 09:32] MED LIST changes: +MULTI VITAMINS1 TAB PO
[2022-01-19] MEDS ORDERED: FERROUS SU325 MG/TAB PO (11:08)
== END 2022-01-19 15:35 ==
LOC: EUO 09:32
DX: G61.81 Chronic inflammatory demyelinating polyneuritis (principal)
CPT/HCPCS: J1569

== ENCOUNTER 2022-02-09 09:28 | Outpatient (CLI) | payer MEDICARE, MEDICAID ==
[2022-02-09] VITALS (7 sets, daily range): BP systolic 123–144; BP diastolic 61–77; PULSE 65–69; TEMP 98–98.2
[~2022-02-09] VITALS: Ht 152.4 cm; Wt 78.0 kg
[~2022-02-09 09:28] MED LIST changes: +FERROUS SU325 MG/TAB PO
[2022-02-09] MEDS ORDERED: GAMMAGARD10 GM IV (10:33)
--- NOTE | 2022-02-09 13:28 | NUR ---
Pt tolerated infusion without issue. PICC line flushed, wrapped with CHAUNCEY wrap. Transport company contacted for ride home. She will be escorted out to entrance.
== END 2022-02-09 13:29 | disposition home or self-care (01) ==
LOC: EUO 09:28
DX: G61.81 Chronic inflammatory demyelinating polyneuritis (principal)
CPT/HCPCS: J0517; J1569

== ENCOUNTER 2022-03-23 09:58 | Outpatient (CLI) | payer MEDICARE, MEDICAID ==
[~2022-03-23] VITALS: Ht 152.4 cm; Wt 78.3 kg
[2022-03-23] VITALS (8 sets, daily range): BP systolic 121–138; BP diastolic 61–82; PULSE 65–78; TEMP 97.9
[~2022-03-23 09:58] MED LIST changes: +CALCIUM-500 5001 CTB PO; +CARTIA XT120 MG PO; +GAMMAGARD10 GM IV; -OSCAL 500 TAB500 MG PO
[2022-03-23] MEDS ORDERED: CYMBALTA 60MG60 MG PO (10:53)
--- NOTE | 2022-03-23 14:15 | NUR ---
Pt tolerated infusion without issue. Transportation called for ride home. Pt escorted out to meet them, gait steady with wheeled walker.
== END 2022-03-23 14:15 | disposition home or self-care (01) ==
LOC: EUO 09:58
DX: G61.81 Chronic inflammatory demyelinating polyneuritis (principal)
CPT/HCPCS: J1569

== ENCOUNTER 2022-06-22 09:50 | Outpatient (CLI) | payer MEDICARE, MEDICAID ==
[2022-06-22] VITALS (8 sets, daily range): BP systolic 122–160; BP diastolic 74–83; PULSE 64–70; TEMP 98.7
[~2022-06-22] VITALS: Ht 152.4 cm; Wt 76.7 kg
[~2022-06-22 09:50] MED LIST changes: +CARDIZEM CD 12120 MG PO; -CARTIA XT120 MG PO; +CYMBALTA 60MG60 MG PO; +DULCOLAX S10 MG/SUPP RC; +PEPCID AC 10MG10 MG PO
== END 2022-06-22 14:11 ==
LOC: EUO 09:50
DX: G61.81 Chronic inflammatory demyelinating polyneuritis (principal)
CPT/HCPCS: J1569

== ENCOUNTER 2022-07-21 09:48 | Outpatient (CLI) | payer MEDICARE, MEDICAID ==
[~2022-07-21] VITALS: Ht 152.4 cm; Wt 74.7 kg
[2022-07-21] VITALS (10 sets, daily range): BP systolic 119–150; BP diastolic 59–99; PULSE 67–96; TEMP 98.2
== END 2022-07-21 15:13 ==
LOC: EUO 09:48
DX: G61.81 Chronic inflammatory demyelinating polyneuritis (principal)
CPT/HCPCS: J1569

== ENCOUNTER 2022-08-18 10:18 | Outpatient (CLI) | payer MEDICARE, MEDICAID ==
[2022-08-18] VITALS (9 sets, daily range): BP systolic 129–171; BP diastolic 78–91; PULSE 72–82; TEMP 97.7–98.5
[~2022-08-18] VITALS: Ht 152.4 cm; Wt 73.6 kg
[2022-08-18] MEDS ORDERED: AMITRIPTYLINE H10 M1 PO (14:05)
== END 2022-08-18 16:00 ==
LOC: EUO 10:18
DX: G61.81 Chronic inflammatory demyelinating polyneuritis (principal)
CPT/HCPCS: J1569

== ENCOUNTER 2022-09-15 09:44 | Outpatient (CLI) | payer MEDICARE, MEDICAID ==
[2022-09-15] VITALS (8 sets, daily range): BP systolic 13–142; BP diastolic 61–88; PULSE 61–78; TEMP 98.6
[~2022-09-15] VITALS: Ht 152.4 cm; Wt 74.3 kg
[~2022-09-15 09:44] MED LIST changes: +AMITRIPTYLINE H10 M1 PO
== END 2022-09-15 16:43 ==
LOC: EUO 09:44
DX: G61.81 Chronic inflammatory demyelinating polyneuritis (principal)
CPT/HCPCS: J1569

== ENCOUNTER → 2022-09-27 | Outpatient (CLI) | payer MEDICARE, MEDICAID ==
[~2022-09-27] VITALS: Ht 152.4 cm; Wt 73.0 kg
[~2022-09-27] MED LIST changes: +LYRICA 50MG CAP50 MG PO
[2022-09-27 11:28] VITALS: BP 135/66; PULSE 77; TEMP 97
--- NOTE | 2022-09-27 12:00 | NUR ---
pt was discharged with information on PICC, jorge wrap over site. called daughter for pickup, pt taken to lobby via w/c to wait for daughter.
== END ==
LOC: EUO 10:00
DX: Z45.2 Encounter for adjustment and management of vascular access device (principal); G61.81 Chronic inflammatory demyelinating polyneuritis
CPT/HCPCS: C1751

== ENCOUNTER 2023-05-10 16:23 | Inpatient (IN) | payer MEDICARE, MEDICAID ==
[~2023-05-10] VITALS: Ht 152.4 cm; Wt 85.6 kg
[2023-05-11] MEDS ORDERED: ASPIRIN 81M81 MG/TA2 PO (11:49)
[2023-05-11] MEDS ORDERED: TYLENOL 500MG500 MG PO (11:49)
[2023-05-11] MEDS ORDERED: ROXICODONE 55 MG/TAB PO (11:50)
[2023-05-11] MEDS ORDERED: LIPITOR20 MG PO (11:51)
[2023-05-11] MEDS ORDERED: CYMBALTA 20MG20 MG PO (11:53)
[2023-05-11] MEDS ORDERED: LEXAPRO20 MG PO (11:53)
[2023-05-11] MEDS ORDERED: PROTONIX 40MG T40 MG PO (11:55)
[2023-05-11] MEDS ORDERED: NEURONTIN300 MG/CAP PO (11:55)
[2023-05-11] MEDS ORDERED: ILOTYCIN5 MG/GM OU (15:21)
[2023-05-11 15:23] VITALS: BP 119/71; PULSE 86; TEMP 97.7
[2023-05-11 15:50] VITALS: BP_SYST 119
--- NOTE | 2023-05-11 15:51 | NUR ---
New pt arrived to unit from [facility] via wheelchair. Pt required 2 person mod asst to stand from chair to FWW & pivot transfer to bed. Pt is a/o x 4. All skin intact except for right knee incision that is approximated w/ dermabond & is ACETYLENE TORCH BURNER. Incision is w/o redness or swelling. Pt denies any valuable items that need to be locked in safe. Pt reports falling at home approx 3 weeks ago. Orientation provided to room & unit. Pt had no further questions. Call light in her reach. Fall precautions in place.
[2023-05-11 17:19] VITALS: BP_SYST 119
[2023-05-11 17:23] VITALS: BP 133/80; PULSE 85; TEMP 98.2
--- NOTE | 2023-05-11 19:23 | NUR ---
report received from jess vyas. pt resting in bed. equal and unlabored breaths noted. no visible signs of pain present. bed alarm on. call light in place. all needs met at this time.
[2023-05-11 21:00] VITALS: BP_SYST 133
--- NOTE | 2023-05-11 21:46 | NUR ---
shift assessment complete, see documentation. pt resting in bed watching tv. pt reports small bout of nausea but refuses prn. pt educated that if it continues she can get some medications to relieve it, pt verbalized understanding. pt tolerated hs meds well. bed alarm on. call light in place. all needs met at this time.
[2023-05-12] VITALS (8 sets, daily range): BP systolic 130–133; BP diastolic 75–77; PULSE 81–90; TEMP 98.2–98.6
--- NOTE | 2023-05-12 08:52 | NUR ---
PT UP TO WHEEL CHAIR FOR BREAKFAST. PT WAS INCONTINENET OF URINE THIS AM. AND RIC PT SAID THAT PT ALSO HAD EMESIS THIS AM. P
--- NOTE | 2023-05-12 10:11 | NUR ---
Electrical Checkout Mechanic met with patient to complete initial intake. Patient lives in [place] with her daughter Cherelle (ph#[phone]), son in law, and two grandsons ages 18 and 20[address] Caraballo for primary care and utilizes Medicaid transportation to get to and from appointments. Patient obtains medications from [facility] with no difficulties. Patient has a front wheeled walker that she uses for ambulation. Patient advised she has services from [facility] to include three times a week bath aides and once monthly nurse visits for B-12 injections. Patient would like to use [facility] [employer] for PT/OT if it is recommended. SW contacted Alex at [facility] and faxed updates.
--- NOTE | 2023-05-12 15:57 | NUR ---
Has lack of transportation kept you from medical appts, meetings, work, or from getting things needed for daily living? NO How often do you feel lonely or isolated from those around you? SOMETIMES Over the past 5 days, how much of the time has pain made it hard for you to sleep? FREQUENTLY Over the past 5 days, how often have you limited your participation in therapy due to pain? RARELY/NOT AT ALL Over the past 5 days, how often have you limited your day-to-day activities because of pain? ALMOST CONSTANTLY Have you had 2 or more falls in the past year or any fall with an injury? YES Did you have major surgery during the 100 days prior to admission? YES
--- NOTE | 2023-05-12 18:58 | NUR ---
WAS GIVEN A REPORT SHEET AND WAS TOLD THE PATIENT TRANSFERS SLOWLY AND IS ALERT AND ORIENTED. IT WAS THE LAZIEST AND MOST INDIFFERENT REPORT I'VE EVER "RECEIVED". THE PATIENT IS RESTING IN BED, WATCHING TV, WITH COMPLAINTS OF PAIN. PATIENT DOES NOT HAVE INT SITE. VITAL SIGNS ARE STABLE AND CALL LIGHT IS WITHIN REACH. WILL RETURN WITH PAIN MEDICATION WHEN I MAKE ROUNDS FOR ASSESSMENT.
[2023-05-13] VITALS (8 sets, daily range): BP systolic 95–130; BP diastolic 55–67; PULSE 76–87; TEMP 97.7–97.8
--- NOTE | 2023-05-13 08:12 | NUR ---
PATIENT ALERT AND ORIENTED X4. VSS. PATIENT HERE FOR ISSUES R/T RTK. PATIENT REPORTS PAIN 11/05, SCHEDULED MEDS ADMINISTERED. ASSESSMENT PERFORMED. AM MEDS ADMINISTERED. PATIENT TOLERATING PO. NO FURTHER NEEDS. CALL LIGHT IN REACH. BED ALARM ON.
[2023-05-14 05:08] VITALS: BP 118/72; PULSE 85; TEMP 98.3
[2023-05-14 06:39] VITALS: BP_SYST 118
--- NOTE | 2023-05-14 07:37 | NUR ---
PATIENT ALERT AND ORIENTED X4. VSS. PATIENT HERE FOR DECLINE R/T RTKA. PATIENT REPORTS MILD PAIN IN RLE, RATING 7/10, SCHEDULED PAIN MEDICATION ADMINISTERED. RLE INCISION WITH DERMABDOTTIE ARAUJO, SCD ON. PATIENT DENIES ANY NAUSEA THIS MORNING. PATIENT DENIES ANY FURTHER NEEDS. CALL LIGHT IN REACH. BED ALARM ON.
[2023-05-14 16:38] VITALS: BP 111/71; PULSE 80; TEMP 98.3
[2023-05-14 19:00] VITALS: BP_SYST 111
[2023-05-15 06:06] VITALS: BP 115/71; PULSE 76; TEMP 98.2
[2023-05-15 07:00] VITALS: BP_SYST 115
--- NOTE | 2023-05-15 08:05 | NUR ---
PT UP TO SOB GETTING DRESSED. AM MEDS GIVEN ORDERED. PO PAIN MEDS GIVEN. BREAKFAST ORDERED. PT DENIES NEEDS AT THIS TIME,POSSIBLE PICC LINE PLACEMENT LATER TODAY. PT AWARE.
--- NOTE | 2023-05-15 16:27 | NUR ---
terrazzo worker helper met with patient to introduce herself and discuss discharge planning. SW explained she would meet with patient on Monday after the IPR team meeting to discuss her progress and determine if they have established a discharge date. Patient reports she would like to utilize [facility] once she discharges home. ELISA faxed clinical updates to [facility]. Discharge Plan: Home with [facility]
[2023-05-15 17:02] VITALS: BP 117/75; PULSE 84; TEMP 97.9
--- NOTE | 2023-05-15 22:34 | NUR ---
report received from mike vyas. pt resting in bed. equal and unlabored breaths noted. no outward signs of pain present. bed alarm on. call light in place. all needs met at this time.
--- NOTE | 2023-05-15 23:29 | NUR ---
shift assessment complete, see documentation. pt denies pain. pt tolerated hs meds well. bed alarm on. call light in reach. all needs met at this time.
--- NOTE | 2023-05-16 04:57 | NUR ---
pt resting well tonight. equal and unlabored breaths noted. incontinence care and repositioning provided as needed. pt denies pain. bed alarm on. call light in reach. all needs met at this time.
[2023-05-16 05:35] VITALS: BP 100/55; PULSE 75; TEMP 98.5
[2023-05-16 07:00] VITALS: BP_SYST 100
--- NOTE | 2023-05-16 14:00 | NUR ---
NURSING WENT TO CHECK ON PATIENT'S PAIN AFTER THERAPY, PATIENT WAS FOUND SOUND ASLEEP. RESTING QUIETLY UP IN BED WITH CALL LIGHT IN REACH.
--- NOTE | 2023-05-16 15:27 | NUR ---
feed in worker faxed clinical updates to [facility]. Discharge Plan: Home with [facility]
[2023-05-16 17:31] VITALS: BP 95/47; PULSE 68; TEMP 97.7
[2023-05-16 19:00] VITALS: BP_SYST 95
--- NOTE | 2023-05-16 19:35 | NUR ---
report received from adebayo vyas. pt resting in bed watching tv. pt denies pain. bed alarm on. call light in reach. all needs met at this time.
--- NOTE | 2023-05-16 20:50 | NUR ---
shift assessment complete, see documentation. pt reporting 01/05 to the right knee. scheduled tramadol administered per orders. incontinence care provided as necessary. bed alarm on. call light in reach. all needs met at this time.
[2023-05-17 04:53] VITALS: BP 105/66; PULSE 82; TEMP 98.3
[2023-05-17 07:00] VITALS: BP_SYST 105
--- NOTE | 2023-05-17 09:07 | NUR ---
PATIENT ALERT AND ORIENTED X4. VSS. PATIENT HERE FOR DEBILITY R/T RTK. RIGHT KNEE WITH DERMABOND ON SURGICAL INCISION. PATIENT REPORTS PAIN 8/10, REQUESTS PAIN MEDICATION. PATIENT HAS HYPOTENSION THIS MORNING, SCHEDULED NARC HELD, WILL REPEAT BP AND ADMINISTER IF BP INCREASES. PATIENT EATING BREAKFAST, NO FURTHER NEEDS. CALL LIGHT IN REACH. BED ALARM ON.
--- NOTE | 2023-05-17 14:01 | NUR ---
end worker faxed clinical updates to [facility]. Discharge Plan: Home with [facility]
--- NOTE | 2023-05-17 16:15 | NUR ---
bench worker apprentice met the IPR team to discuss patient's progress and potential discharge. Patient is scheduled for discharge on 05/24/23. Rhonda met with patient to discuss IPR team meeting notes and discharge date of 05/24/23. Patient expressed she was okay with that discharge date and would like to continue with [facility]. RHONDA discussed a family meeting on Monday and patient expressed to contact her daughter, Cherelle. RHONDA Ramos faxed clinical updates to [facility]. RHONDA contacted patient's daughter, Cherelle. Cherelle expressed 05/23/23 at 9:30 AM would work with her schedule for the meeting but she would like to be via telephone. Discharge Plan: Home with Home Health
--- NOTE | 2023-05-17 16:46 | NUR ---
THERAPY REVEALED TO THIS NURSE THAT PRIOR DOTTIE HOSE WERE ROLLING AND KINKING IN AREAS ON PATIENT'S RLE. SKIN DISCOLORED, BUT INTACT. PATIENT REPORTS MILD DISCOMFORT, LARGER DOTTIE HOSE APPLIED TO PATIENT'S RLE.
[2023-05-17 17:10] VITALS: BP 107/54; PULSE 94; TEMP 98.4
[2023-05-17 19:00] VITALS: BP_SYST 107
--- NOTE | 2023-05-17 19:10 | NUR ---
report received from paddy vyas. pt resting in bed watching tv, equal and unlabored breaths noted. no outward signs of pain present. bed alarm on. call light in reach. all needs met at this time.
--- NOTE | 2023-05-17 21:49 | NUR ---
shift assessment complete, see documentation. pt reports 10/05 to the right knee. scheduled tramadol administered per orders. pt tolerated hs meds well. bed alarm on. call light in reach. all needs met at this time.
--- NOTE | 2023-05-18 02:21 | NUR ---
pt resting well tonight. pt ambulated to bathroom utilizing gait belt and walker with steady gait. pt reports minimal pain and scheduled tylenol was administered per orders. pt now back in bed. bed alarm on. call light in reach. all needs met at this time.
[2023-05-18 05:01] VITALS: BP 104/67; PULSE 81; TEMP 98.2
[2023-05-18 07:04] VITALS: BP_SYST 104
--- NOTE | 2023-05-18 07:04 | NUR ---
Shift report received from night RN. Pt w/ soft BP's overnight. Cardizem held by night RN. DOTTIE hose have been too tight - pt now has size Xl. No other events overnight. Pt sleeping supine w/ even & unlabored resps. Call light in reach. Bed alarm on.
[2023-05-18 07:33] VITALS: BP 113/61
[2023-05-18 07:38] LABS: BASO % 0.3 % (0.0-2.0); EOS # 0.4 K/mm3 (0.0-0.7); EOS % 6.5 % (0.0-4.0); GRAN # 3.4 K/mm3 (1.4-6.5); GRAN % 51.9 % (42.2-75.2); LYMPH # 1.8 K/mm3 (1.2-3.4); LYMPH % 27.7 % (20.0-51.0); MEAN CELL VOLUME 93 fl (80.0-100.0); MEAN CORPUSCULAR HGB CONC 33 g/dl (33.0-37.0); MEAN PLATELET VOLUME 10.4 fl (7.4-10.4); MONO # 0.8 K/mm3 (0.1-0.6); MONO % 12.8 % (1.7-9.3); PLATELET COUNT 264 K/mm3 (130-400); RED BLOOD COUNT 3.08 M/mm3 (4.10-5.30); REDCELL DISTRIBUTION WIDTH-CV 14.3 % (11.5-14.5)
[2023-05-18 07:43] LABS: HEMATOCRIT 28.7 % (37.0-47.0); HEMOGLOBIN 9.5 g/dl (12.5-16.0); MEAN CORPUSCULAR HEMOGLOBIN 31 pg (27-31)
--- NOTE | 2023-05-18 07:56 | NUR ---
Pt sitting up in the recliner to eat breakfast. Pt rating pain at 7/10. Scheduled pain medications given as ordered. Other needs denied. Call light in reach. Chair alarm on.
[2023-05-18 08:10] LABS: CALCIUM 8.6 mg/dL (8.4-10.2); CREATININE, serum 0.6 mg/dL (0.57-1.11); POTASSIUM 3.4 mmol/L (3.5-4.5)
--- NOTE | 2023-05-18 09:16 | NUR ---
Pt sitting up in the recliner. Emesis x 1. Pt thinks she may had a drink too soon after eating. Dr. Mejia aware. Awaiting [facility] order.
--- NOTE | 2023-05-18 09:24 | NUR ---
Zofran given per PRN order. PT at the bedside to ambulate pt.
--- NOTE | 2023-05-18 10:21 | NUR ---
Pt off unit for Group Therapy.
--- NOTE | 2023-05-18 11:49 | NUR ---
Pt sitting up in the recliner w/ BLE elevated on footrest after Group Therapy. Pt reports feeling better - no nausea, no further vomiting. Scheduled pain medication given. Pt denies other needs at this time. Call light in reach. Chair alarm is on.
[2023-05-18 14:00] VITALS: BP 120/53
--- NOTE | 2023-05-18 15:33 | NUR ---
Pt sitting up in the recliner visiting w/ a friend. Pt reports pain level at 5/10. Scheduled Tylenol given. Denies nausea or abd. pain. Other needs denied. Call light in reach. Bed alarm on.
[2023-05-18 16:19] VITALS: BP 115/56; PULSE 80; TEMP 97.8
[2023-05-18 19:00] VITALS: BP_SYST 115
--- NOTE | 2023-05-18 20:35 | NUR ---
PATIENT RESTING IN BED WATCHING TV. ALERT AND ORIENTED. SHIFT ASSESSMENT COMPLETE. INCISION TO RIGHT KNEE IS CDI WITH DOTTIE IRENE ON. PATIENT STATES PAIN IS 6/10. MEDICATIONS GIVEN PER MAR. PATIENT DENIES ANY NEEDS OR CONCERNS AT THIS TIME.
--- NOTE | 2023-05-19 02:34 | NUR ---
PATIENT HAS SLEPT NEARLY ALL SHIFT. NO COMPLAINTS OF PAIN OR DISCOMFORT AT THIS TIME.
[2023-05-19 06:00] VITALS: BP 116/71; PULSE 88; TEMP 98.2
--- NOTE | 2023-05-19 06:52 | NUR ---
Shift report received from night RN. Pt awake & lying supine in bed w/ HOB elevated to approx 30 degrees. Pt requesting morning medications, early, before breakfast arrives to avoid nausea/vomiting. Medications administered. Other needs denied. Call light in reach. Bed alarm on.
[2023-05-19 06:59] VITALS: BP_SYST 116
--- NOTE | 2023-05-19 09:01 | NUR ---
Pt off unit w/ PT.
--- NOTE | 2023-05-19 11:11 | NUR ---
Pt back in her room after PT. Pt sitting in recliner w/ BLE elevated on the footrest. Cryocuff placed on to R knee. Pt denies nausea today. Other needs denied. Call light in reach. Chair alarm on.
--- NOTE | 2023-05-19 13:14 | NUR ---
Pt sitting up in recliner after eating lunch holding emesis bag. Pt thinks she ate her lunch too quickly & "some of it came back up". Pt requesting Zofran before her next OT starts. Zofran given.
[2023-05-19 13:18] VITALS: BP 149/82
--- NOTE | 2023-05-19 14:44 | NUR ---
OT reported that pt had dizzy spell/disorientation during ambulation. BP was 125/67. This event occurred approx 30 minutes ago. Pt sitting up in bed & reports feeling better - no longer feeling dizzy. Pt is a/o x 4. Denies WINTERS. Pt denies other needs at this time. Call light in reach. Bed alarm on.
[2023-05-19 16:27] LABS: HEMATOCRIT 33.7 % (37.0-47.0)
--- NOTE | 2023-05-19 16:59 | NUR ---
social worker assistant met with patient to check in prior to the weekend. Patient is doing well, she stated she was a bit dizzy earlier but overall she feels she is improving with PT. SW explained she would return on Monday and would meet with her again but there is a social worker psychiatric available over the weekend if something comes up. ELISA faxed clinical updates to [facility] and notified them of patient's discharge date being scheduled as 05/24/23. Discharge Plan: Home with Home Health
[2023-05-19 17:16] VITALS: BP 110/63; PULSE 85; TEMP 98.1
--- NOTE | 2023-05-19 17:34 | NUR ---
Pt sitting up in bed eating dinner. She continues to report that dizziness has gone away. Nausea denied. Pt denies the need for any additional pain medication at this time. Call light in her reach. Bed alarm on.
[2023-05-19 19:00] VITALS: BP_SYST 110
[2023-05-20 06:00] VITALS: BP 106/67; PULSE 92; TEMP 98.7
[2023-05-20 07:11] VITALS: BP_SYST 106
[2023-05-20 18:03] VITALS: BP 91/48; PULSE 87; TEMP 97.3
--- NOTE | 2023-05-20 18:41 | NUR ---
PATIENT HAD A GOOD DAY. PARTICIPATED IN THERAPY. RECIEVING SCHEDULED PAIN MEDICATIONS,AND PRNS.. SBA WITH WALKER TO THE RESTROOM AND FOR TRANSFERS. VSS. CALL LIGHT WITHIN REACH, BED ALARM ON.
[2023-05-20 19:00] VITALS: BP_SYST 91
[2023-05-21] VITALS (7 sets, daily range): BP systolic 97–122; BP diastolic 46–80; PULSE 83–86; TEMP 98.2–98.3
--- NOTE | 2023-05-21 06:45 | NUR ---
Shift report received from night RN. No events reported overnight. Pt sleeping supine in bed w/ even & unlabored resps. Call light in reach. Bed alarm on.
--- NOTE | 2023-05-21 09:26 | NUR ---
Pt back in her room after PT. She is sitting up in the recliner eating her breakfast. Scheduled pain medications were given prior to PT this morning. Pt denies the need for additional pain medication at this time. Call light in her reach. Chair alarm on.
--- NOTE | 2023-05-21 09:43 | NUR ---
Pt ambulating off unit w/ PT.
--- NOTE | 2023-05-21 10:57 | NUR ---
Pt remains off unit for Group Therapy.
--- NOTE | 2023-05-21 11:53 | NUR ---
Pt sitting up in bed after returned from Group Therapy. Pt rating knee pain at 7/10. Scheduled Oxycodone given. Pt denies other needs. Call light in reach. Bed alarm on.
--- NOTE | 2023-05-21 17:28 | NUR ---
Pt sitting up in bed eating dinner independently. Pt rating pain at 6/10 in R knee. Pt denies the need for any pain medication at this time. Cryocuff declined. Pt denies other needs at this time. Call light in her reach. Bed alarm on.
--- NOTE | 2023-05-21 19:05 | NUR ---
RECEIVED CHANGE OF SHIFT REPORT FROM DAY SHIFT NURSE.
--- NOTE | 2023-05-21 23:03 | NUR ---
CLARIFIED WITH GIUSEPPE SHELL TO GIVE DILTIAZEM 30MG, INFORMED OF RECENT SBP OF 104 AND 102, DBP 50'S. OKAY TO GIVE DILTIAZEM.
--- NOTE | 2023-05-22 02:13 | NUR ---
Patient resting with eyes closed, breathing even, loud and snoring, does not wake during nursing rounds.
[2023-05-22 05:44] VITALS: BP 107/55; PULSE 82; TEMP 98.2
[2023-05-22 07:05] VITALS: BP_SYST 107
--- NOTE | 2023-05-22 07:16 | NUR ---
Change of shift report given to day shift nurseCameron.
--- NOTE | 2023-05-22 11:53 | NUR ---
RN in to administer scheduled dose Roxicodone. Pt declined medication stating "I think it constipates me". Offered stool softener, pt declined this also. Tylenol 650mg given instead.
--- NOTE | 2023-05-22 14:40 | NUR ---
Pt supervised as she stood from recliner to ambulate to the bathroom w/ FWW. Pt to bed after toileting. Cryocuff on to R Knee. Pt denies other needs. Call light in her reach. Bed alarm on.
[2023-05-22 16:54] VITALS: BP 114/69; PULSE 89; TEMP 97.9
[2023-05-22 19:00] VITALS: BP_SYST 114
[2023-05-23 06:00] VITALS: BP 122/73; PULSE 82; TEMP 98.6
[2023-05-23 07:00] VITALS: BP_SYST 122
--- NOTE | 2023-05-23 14:08 | NUR ---
Has lack of transportation kept you from medical appts, meetings, work, or from getting things needed for daily living? NO How often do you feel lonely or isolated from those around you? RARELY Over the past 5 days, how much of the time has pain made it hard for you to sleep? FREQUENTLY Over the past 5 days, how often have you limited your participation in therapy due to pain? RARELY/NOT AT ALL Over the past 5 days, how often have you limited your day-to-day activities because of pain? RARELY/NOT AT ALL
--- NOTE | 2023-05-23 17:00 | NUR ---
pass worker attended patient's family meeting with the inpatient rehab team. Patient is comfortable returning home with home health services. No concerns at this time. ELISA faxed [facility] clinical updates. Discharge tomorrow, 05/24/23. Discharge Plan: Home with Home Health
[2023-05-23 19:00] VITALS: BP_SYST 133
--- NOTE | 2023-05-23 19:06 | NUR ---
report received from mike vyas. pt resting in bed and finishing dinner. pt denies pain. bed alarm on. call light in reach. all needs met at this time.
[2023-05-23 19:08] VITALS: BP 133/68; PULSE 92; TEMP 98
--- NOTE | 2023-05-23 22:50 | NUR ---
shift assessment complete, see documentation. pt reports 12/05 right hip pain. scheduled tramadol administered per orders. pt ambulating well with steady gait. bed alarm on. call light in reach. all needs met at this time.
[2023-05-24 04:47] VITALS: BP 111/66; PULSE 85; TEMP 98.1
--- NOTE | 2023-05-24 06:27 | NUR ---
pt slept well. pt tolerated protonix this am. pt very excited to go home today. bed alarm on. call light in reach. all needs met at this time.
[2023-05-24 07:00] VITALS: BP_SYST 111
--- NOTE | 2023-05-24 08:20 | NUR ---
PT SITTING UP IN BED EATING BREAKFAST. PLAN ON DISCHARGE LATER TODAY. AM MEDS GIVEN ORDERED. PO PAIN MEDS KEEPING PAIN UNDERCONTROLL.
[2023-05-24] MEDS ORDERED: ASPIRIN 81M81 MG/TA2 PO (08:32)
[2023-05-24] MEDS ORDERED: CARDIZEM 30MG T30 MG PO (08:35)
[2023-05-24] MEDS ORDERED: ROXICODONE 55 MG/TAB PO ×2 (08:36→10:56)
--- NOTE | 2023-05-24 11:07 | NUR ---
DISCHARGE INSTRUCTIONS REVIEWED WITH PT AND FAMILY. DR. ORLANDO HAS ADDED A PAIN MED TO DISCHARGE AND CALLED IN TO PHARMACY. PT LEFT UNIT PER WHEEL CHAIR WITH STAFF.
--- NOTE | 2023-05-24 11:29 | NUR ---
community outreach worker faxed clinical updates and discharge orders to [facility].
--- NOTE | 2023-05-26 14:08 | NUR ---
Discharge QIM scores were reviewed by the team. Code of 4 for car transfer was determined by team discussion to be the most usual performance for this patient during the discharge assessment period.--Leila Fernandez, PD
== END 2023-05-24 11:09 | disposition home health service (06) | DRG 560 ==
PROVIDERS: Physician Assistant; ADMIT Physical Medicine & Rehabilitation Sports Medicine
DX: Z47.1 Aftercare following joint replacement surgery (principal); G61.81 Chronic inflammatory demyelinating polyneuritis; R26.89 Other abnormalities of gait and mobility; R53.81 Other malaise; D64.89 Other specified anemias; I10 Essential (primary) hypertension; K21.9 Gastro-esophageal reflux disease without esophagitis; K44.9 Diaphragmatic hernia without obstruction or gangrene; E78.5 Hyperlipidemia, unspecified; S05.02XD Injury of conjunctiva and corneal abrasion without foreign body, left eye, subsequent encounter; S05.01XD Injury of conjunctiva and corneal abrasion without foreign body, right eye, subsequent encounter; E87.5 Hyperkalemia; F41.9 Anxiety disorder, unspecified; F32.A Depression, unspecified; K59.09 Other constipation; Z79.899 Other long term (current) drug therapy; Z98.84 Bariatric surgery status; Z74.09 Other reduced mobility; Z96.651 Presence of right artificial knee joint; Z79.891 Long term (current) use of opiate analgesic; Z79.2 Long term (current) use of antibiotics; R11.2 Nausea with vomiting, unspecified; K59.00 Constipation, unspecified; R42 Dizziness and giddiness